=== PATIENT | male | born 1950 | race Caucasian/White ===

== ENCOUNTER 2017-11-24 11:13 | Outpatient (RCR) | payer MEDICARE | END 2017-11-24 12:25 | disposition home or self-care (01) | PROVIDERS: ATTEND Family Medicine | DX: R26.89 Other abnormalities of gait and mobility (principal) ==

== ENCOUNTER → 2018-06-08 | Outpatient (CLI) | payer MEDICARE, OTHER | LOC: RAD 09:56 | PROVIDERS: ATTEND Nurse Practitioner Community Health | DX: R41.0 Disorientation, unspecified (principal); Z53.8 Procedure and treatment not carried out for other reasons ==

== ENCOUNTER 2018-06-14 12:51 | Inpatient (IN) | payer MEDICARE ==
[~2018-06-14] VITALS: Ht 170.2 cm; Wt 181.4 kg
[2018-06-14 13:22] LABS: BASOPHILS % (AUTO) 0 % (0-10); EOSINOPHILS % (AUTO) 0 % (0-10); HEMATOCRIT 39 % (40-54); HEMOGLOBIN 13.9 G/DL (13.3-17.7); LYMPHOCYTES % (AUTO) 7 % (12-44); MEAN CORPUSCULAR HEMOGLOBIN 33 PG (25-34); MEAN CORPUSCULAR HGB CONC 36 G/DL (32-36); MEAN CORPUSCULAR VOLUME 92 FL (80-99); MEAN PLATELET VOLUME 9.7 FL (7.4-10.4); MONOCYTES # (AUTO) 1.3 X 10^3 (0.0-1.0); MONOCYTES % (AUTO) 10 % (0-12); NEUTROPHILS # (AUTO) 11.1 X 10^3 (1.8-7.8); NEUTROPHILS % (AUTO) 83 % (42-75); PLATELET COUNT 161 10^3/uL (130-400); WHITE BLOOD COUNT 13.4 10^3/uL (4.3-11.0)
[2018-06-14] MEDS ORDERED: NS IV 500 ML 500 ML IV ONE (13:25)
[2018-06-14] MEDS ORDERED: NS IV 500 ML 500 ML ONE (13:25)
--- NOTE | 2018-06-14 13:33 | ED General ---
General Chief Complaint: General Problems/Pain Stated Complaint: STROKE LIKE SYMPTOMS Nursing Triage Note: PT BROUGHT IN BY EMS FROM [facility] WITH COMPLAINT OF LEFT SIDED WEAKNESS. PER NH, SYMPTOMS STARTED LAST NIGHT. PT WAS LEANING TOWARDS LEFT SIDE IN WHEELCHAIR. PT STATES SYMTPOMS HAVE RESOLVED. NH ALSO STATED THAT PT WAS RUNNING A TEMPERATURE LAST NIGHT. Nursing Sepsis Screen: No Definite Risk Source of Information: Patient Exam Limitations: No Limitations History of Present Illness Date Seen by Provider: Jun 14, 2018 Time Seen by Provider: 13:12 Initial Comments Here with report of left-sided weakness but patient states that he is actually globally weak and worse in the legs and the arms. Apparently last night had an episode of incontinence. 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 Apparently he was running a temperature last night. Patient is not a great historian. He states he is normally able to walk some with assistance but is more weak on his legs now. Denies nausea or vomiting. Denies breathing problems or chest pain. Report from shelter was that he was leaning towards the left. This is apparently going on for 12-18 hours at least. Timing/Duration: 12-24 Hours Severity: Mild, Moderate Associated Systoms: No Chest Pain, No Cough; Fever/Chills, Loss of Appetite; No Nausea/Vomiting, No Shortness of Air; Weakness Allergies and Home Medications Allergies Coded Allergies: No Known Drug Allergies (Unverified , 06/14/18) Patient Home Medication List Home Medication List Reviewed: Yes Review of Systems Review of Systems Constitutional: see HPI; No chills; fever, weakness EENTM: no symptoms reported Respiratory: No cough, No short of breath Cardiovascular: No chest pain; edema Gastrointestinal: No abdominal pain, No nausea, No vomiting Genitourinary: incontinence; No pain Musculoskeletal: see HPI; No muscle pain; muscle weakness Skin: change in color; No lesions Psychiatric/Neurological: See HPI, Weakness Hematologic/Lymphatic: No Symptoms Reported All Other Systems Reviewed Negative Unless Noted: Yes Past Ilbtwzh-Voxoaf-Zblnya Hx Past Med/Social Hx: Reviewed Nursing Past Med/Soc Hx Patient Social History Alcohol Use: Denies Use Recreational Drug Use: No Smoking Status: Never a Smoker Recent Foreign Travel: No Contact w/Someone Who Travel: No Recent Infectious Disease Expo: No Recent Hopitalizations: No Immunizations Up To Date Tetanus Booster (TDap): Unknown Seasonal Allergies Seasonal Allergies: No Past Medical History Surgeries: Yes (NECK, EYE, ) Orthopedic Neurological: Yes (TBI) Genitourinary: No Endocrine: Yes Family Medical History Reviewed Nursing Family Hx No Pertinent Family Hx Physical Exam Vital Signs Vital Signs - First Documented 06/14/18 12:51 Temp 98.3 Pulse 103 Resp 20 B/P (MAP) 118/64 (82) Pulse Ox 96 O2 Delivery Room Air Capillary Refill : Less Than 3 Seconds Height, Weight, BMI Height: 5'7.00" Weight: 400lbs. oz. 181.175692wv; BMI Method:Estimated General Appearance: No Apparent Distress, WD/WN, Obese HEENT: Pharynx Normal, Other (left eye. Right eye reactive) Neck: Non Tender, Supple Respiratory: Lungs Clear, Normal Breath Sounds Cardiovascular: No Murmur, Tachycardia Gastrointestinal: Non Tender, Soft Back: Normal Inspection, No CVA Tenderness, No Vertebral Tenderness Extremity: Non Tender, Swelling (bilateral lower extremities with venous stasis color changes), Other (bilateral lower extremities) Neurologic/Psychiatric: Alert, Oriented x3 Skin: Warm/Dry, Other (venous stasis changes bilateral lower extremities) Focused Exam Lactate Level 06/14/18 14:29: Lactic Acid Level 2.45*H Lactic Acid Level Laboratory Tests Test 06/14/18 14:29 Lactic Acid Level 2.45 MMOL/L (0.50-2.00) *H Progress/Results/Core Measures Suspected Sepsis Recent Fever Within 48 Hours: No Infection Criteria Present: None New/Unexplained Altered Menta: No Sepsis Screen: No Definite Risk SIRS Temperature:98.3 Pulse: 103 Respiratory Rate: 20 Laboratory Tests 06/14/18 13:10: White Blood Count 13.4H Blood Pressure 118 /64 Mean: 82 06/14/18 14:29: Lactic Acid Level 2.45*H Laboratory Tests 06/14/18 13:10: Creatinine 1.12, INR Comment 1.0, Platelet Count 161, Total Bilirubin 0.5 Results/Orders Lab Results Laboratory Tests Test 06/14/18 13:10 06/14/18 13:34 06/14/18 14:29 Range/Units White Blood Count 13.4 H 4.3-11.0 10^3/uL Red Blood Count 4.21 L 4.35-5.85 10^6/uL Hemoglobin 13.9 13.3-17.7 G/DL Hematocrit 39 L 40-54 % Mean Corpuscular Volume 92 80-99 FL Mean Corpuscular Hemoglobin 33 25-34 PG Mean Corpuscular Hemoglobin Concent 36 32-36 G/DL Red Cell Distribution Width 12.0 10.0-14.5 % Platelet Count 161 130-400 10^3/uL Mean Platelet Volume 9.7 7.4-10.4 FL Neutrophils (%) (Auto) 83 H 42-75 % Lymphocytes (%) (Auto) 7 L 12-44 % Monocytes (%) (Auto) 10 0-12 % Eosinophils (%) (Auto) 0 0-10 % Basophils (%) (Auto) 0 0-10 % Neutrophils # (Auto) 11.1 H 1.8-7.8 X 10^3 Lymphocytes # (Auto) 1.0 1.0-4.0 X 10^3 Monocytes # (Auto) 1.3 H 0.0-1.0 X 10^3 Eosinophils # (Auto) 0.0 0.0-0.3 10^3/uL Basophils # (Auto) 0.0 0.0-0.1 10^3/uL Neutrophils % (Manual) 79 % Lymphocytes % (Manual) 6 % Monocytes % (Manual) 9 % Band Neutrophils 6 % Blood Morphology Comment NORMAL Prothrombin Time 13.6 12.2-14.7 SEC INR Comment 1.0 0.8-1.4 Activated Partial Thromboplast Time 31 24-35 SEC D-Dimer 0.93 H 0.00-0.49 UG/ML Sodium Level 135 135-145 MMOL/L Potassium Level 4.3 3.6-5.0 MMOL/L Chloride Level 99 98-107 MMOL/L Carbon Dioxide Level 26 21-32 MMOL/L Anion Gap 10 5-14 MMOL/L Blood Urea Nitrogen 19 H 7-18 MG/DL Creatinine 1.12 0.60-1.30 MG/DL Estimat Glomerular Filtration Rate > 60 BUN/Creatinine Ratio 17 Glucose Level 287 H 70-105 MG/DL Calcium Level 9.1 8.5-10.1 MG/DL Corrected Calcium 9.4 8.5-10.1 MG/DL Total Bilirubin 0.5 0.1-1.0 MG/DL Aspartate Amino Transf (AST/SGOT) 17 5-34 U/L Alanine Aminotransferase (ALT/SGPT) 15 0-55 U/L Alkaline Phosphatase 66 40-136 U/L Troponin I < 0.028 <0.028 NG/ML Total Protein 7.2 6.4-8.2 GM/DL Albumin 3.6 3.2-4.5 GM/DL Urine Color YELLOW Urine Clarity CLEAR Urine pH 5 5-9 Urine Specific [place] 1.020 1.016-1.022 Urine Protein NEGATIVE NEGATIVE Urine Glucose (UA) 1+ H NEGATIVE Urine Ketones 1+ H NEGATIVE Urine Nitrite POSITIVE H NEGATIVE Urine Bilirubin NEGATIVE NEGATIVE Urine Urobilinogen 1 NORMAL MG/DL Urine Leukocyte Esterase 2+ H NEGATIVE Urine RBC (Auto) 1+ H NEGATIVE Urine RBC 0-2 /HPF Urine WBC 10-25 H /HPF Urine Crystals NONE /LPF Urine Bacteria LARGE H /HPF Urine Casts NONE /LPF Urine Mucus NEGATIVE /LPF Urine Culture Indicated YES Glucometer 301 H 70-110 MG/DL Lactic Acid Level 2.45 *H 0.50-2.00 MMOL/L My Orders Orders - GAGE HAUSER MD Ns Iv 500 Ml (Sodium Chloride 0.9%) (06/14/18 13:25) Ns Iv 500 Ml (Sodium Chloride 0.9%) (06/14/18 13:25) Lactic Acid Analyzer (06/14/18 14:20) Blood Culture (06/14/18 14:20) Ceftriaxone For Iv Use (Rocephin For I (06/14/18 14:30) Lr 1000ml Iv (06/14/18 15:27) Medications Given in ED Current Medications Medications Dose Ordered Sig/Riley Route Start Time Stop Time Status Last Admin Dose Admin Ceftriaxone Sodium 1000 mg/ Sterile Water 10 ml @ 200 mls/hr ONCE ONCE IV 06/14/18 14:30 06/14/18 14:32 DC 06/14/18 14:51 200 MLS/HR Sodium Chloride 500 ml @ 0 mls/hr Q0M ONCE IV 06/14/18 13:25 06/14/18 13:27 DC 06/14/18 13:30 500 MLS/HR Vital Signs/I&O 06/14/18 12:51 Temp 98.3 Pulse 103 Resp 20 B/P (MAP) 118/64 (82) Pulse Ox 96 O2 Delivery Room Air Capillary Refill : Less Than 3 Seconds Blood Pressure Mean: 82 Progress Note : Progress Note Seen and evaluated. IV, labs, EKG and chest x-ray ordered. CT head ordered. Normal saline 500 mL bolus. We will check a UA as he is incontinent and has had fever. Dysphagia screen ordered. 1420: CT is negative for acute stroke. UA is positive for urinary tract infection. Given the patient's weakness, elevated white count and otherwise comorbidities, patient will need admission for IV antibiotics and hydration and continued monitoring. Blood cultures and lactic acid have been ordered. We will initiate treatment with Rocephin after. Findings more consistent with urinary tract infection and less consistent with stroke. Patient is well outside of TPA window so TPA is not indicated. He is also essentially without deficits except for global weakness. 1519: Patient to be admitted, inpatient status. I did discuss the case with Dr. Fox and she accepts patient for admission. We will not Silver catheter at this point at this point but we will monitor for urinary retention every 4-6 hours and the bladder scan if he has not urinated. Patient does have history of some urinary retention but is voiding currently. We will repeat fluids bolus with LR 1 L. Patient remains greater than 90 systolic or 65 mouth and does not require high- volume fluid resuscitation at this time. Patient is likely somewhat dehydrated though so additional fluid will benefit. Patient will be on sliding scale. agrees with the plan. ECG Initial ECG Impression Date: Jun 14, 2018 Initial ECG Impression Time: 13:15 Initial ECG Rate: 97 Initial ECG Rhythm: Normal Sinus Comment Sinus rhythm with left bundle branch block. Normal axis. No evidence of ST elevation SC. No previous available for comparison. Interpreted by me. Diagnostic Imaging Diagonstic Imaging: Xray Plain Films/CT/US/NM/MRI: chest [facility] [place], [place] NAME: SIOMARA HYDE [facility] REC#: [id number] PT STATUS: REG ER : 1950 PHYSICIAN: CHARISSA ROBLEDO APRN ADMIT DATE: 06/14/18/ER Draft Date of Exam:06/14/18 CHEST 1 VIEW, AP/PA ONLY INDICATION: Left-sided weakness. Time of exam 1:40 PM. No prior studies are available for comparison. The heart is enlarged. Lungs are clear. No infiltrate or failure is detected. No effusion or pneumothorax is seen. IMPRESSION: Cardiomegaly. No other significant abnormality is detected. Dictated on workstation # [id number] Dict: 06/14/18 1354 Trans: 06/14/18 1357 [facility] [id number] Interpreted by: ANUP JONES MD Electronically signed by: Duy Imaging: CT Plain Films/CT/US/NM/MRI: head Comments [facility] [place] [place] NAME: SIOMARA HYDE [facility] REC#: [id number] PT STATUS: REG ER : 1950 PHYSICIAN: CHARISSA ROBLEDO APRN ADMIT DATE: 06/14/18/ER Draft Date of Exam:06/14/18 CT HEAD WO-R/O STROKE PROCEDURE: CT head wo r/o stroke. TECHNIQUE: Multiple contiguous axial images were obtained through the brain without the use of intravenous contrast. Auto Exposure Controls were utilized during the CT exam to meet ALARA standards for radiation dose reduction. INDICATION: Weakness. No prior studies are available for comparison. Ventricles and sulci are somewhat prominent for the patient's age, perhaps on the basis of cerebral atrophy. No sulcal effacement or midline shift is identified. No acute intra-axial or extra-axial hemorrhage is detected. Cisterns are patent. Visualized paranasal sinuses are clear. IMPRESSION: Cerebral atrophy. No acute intracranial process is detected. Results were discussed with Dr. Hauser in the Emergency Department prior to this dictation. Dictated on workstation # [id number] Dict: 06/14/18 1415 Trans: 06/14/18 1419 LATESHA [id number] Interpreted by: ANUP JONES MD Electronically signed by: Departure Communication (Admissions) Time/Spoke to Admitting Phy: 15:19 Impression Primary Impression: Urinary tract infection Qualified Codes: N30.00 - Acute cystitis without hematuria Additional Impressions: Hyperglycemia Weakness Disposition: ADMITTED INPATIENT Condition: Stable Admissions Decision to Admit Reason: Admit from ER (General) Decision to Admit/Date: Jun 14, 2018 Time/Decision to Admit Time: 15:19 Departure-Patient Inst. Referrals: MARCELLA ADAMS MD (PCP) Primary Care Physician GAGE HAUSER MD Jun 14, 2018 13:33
[2018-06-14 13:40] LABS: BILIRUBIN,URINE NEGATIVE (NEGATIVE); CLARITY,URINE CLEAR; COLOR,URINE YELLOW; GLUCOSE, URINE (UA) 1+ (NEGATIVE); KETONES,URINE 1+ (NEGATIVE); LEUKOCYTE ESTERASE ,URINE 2+ (NEGATIVE); NITRITE,URINE POSITIVE (NEGATIVE); PH,URINE 5 (5-9); PROTEIN,URINE NEGATIVE (NEGATIVE); UROBILINOGEN,URINE 1 MG/DL (NORMAL)
[2018-06-14 13:41] LABS: ALANINE AMINOTRANSFERASE 15 U/L (0-55); ALBUMIN 3.6 GM/DL (3.2-4.5); ALKALINE PHOSPHATASE 66 U/L (40-136); BILIRUBIN,TOTAL 0.5 MG/DL (0.1-1.0); BUN/CREATININE RATIO 17; CALCIUM 9.1 MG/DL (8.5-10.1); CARBON DIOXIDE 26 MMOL/L (21-32); CHLORIDE 99 MMOL/L (98-107); CREATININE SERUM 1.12 MG/DL (0.60-1.30); GFR ESTIMATED > 60; GLUCOSE 287 MG/DL (70-105); POTASSIUM 4.3 MMOL/L (3.6-5.0); SODIUM 135 MMOL/L (135-145); TOTAL PROTEIN 7.2 GM/DL (6.4-8.2)
[2018-06-14] MEDS ORDERED: DIVA500T15 (13:43)
[2018-06-14] MEDS ORDERED: SERT50TA9 PO (13:43)
[2018-06-14] MEDS ORDERED: LISI1TAB8 PO (13:43)
[2018-06-14] MEDS ORDERED: TIMO5DRO5 OU (13:43)
[2018-06-14 13:45] LABS: FIBRIN DEGRADATION PRODUCTS 0.93 UG/ML (0.00-0.49); PROTHROMBIN TIME PATIENT 13.6 SEC (12.2-14.7)
[2018-06-14 13:50] LABS: BACTERIA,URINE LARGE /HPF; RBC,URINE 0-2 /HPF
--- NOTE | 2018-06-14 13:57 | Diagnostic Imaging Report ---
INDICATION: Left-sided weakness. Time of exam 1:40 PM. No prior studies are available for comparison. The heart is enlarged. Lungs are clear. No infiltrate or failure is detected. No effusion or pneumothorax is seen. IMPRESSION: Cardiomegaly. No other significant abnormality is detected. Dictated by: Dictated on workstation # [id number]
[2018-06-14 14:00] LABS: BAND NEUTROPHILS 6 %; LYMPHOCYTES % (MANUAL) 6 %; MONOCYTES % (MANUAL) 9 %; NEUTROPHILS % (MANUAL) 79 %; RBC MORPH NORMAL
--- NOTE | 2018-06-14 14:19 | Diagnostic Imaging Report ---
PROCEDURE: CT head wo r/o stroke. TECHNIQUE: Multiple contiguous axial images were obtained through the brain without the use of intravenous contrast. Auto Exposure Controls were utilized during the CT exam to meet ALARA standards for radiation dose reduction. INDICATION: Weakness. No prior studies are available for comparison. Ventricles and sulci are somewhat prominent for the patient's age, perhaps on the basis of cerebral atrophy. No sulcal effacement or midline shift is identified. No acute intra-axial or extra-axial hemorrhage is detected. Cisterns are patent. Visualized paranasal sinuses are clear. IMPRESSION: Cerebral atrophy. No acute intracranial process is detected. Results were discussed with Dr. Camarillo in the Emergency Department prior to this dictation. Dictated by: Dictated on workstation # [id number]
[2018-06-14] MEDS ORDERED: cefTRIAXone FOR IV USE 1,000 MG in WATER (STERILE) FOR INJECTION 10 ML IV ONE (14:30)
[2018-06-14] MEDS ORDERED: LACTATED RINGERS 1,000 ML IV ONE ×2 (15:26→15:27)
--- NOTE | 2018-06-14 16:00 | NUR ---
MARY ELLENSIOMARA Meehan admitted to room 410-1, with an admitting diagnosis of UTI, on 06/14/18 from AM via cart, accompanied by staff.SIOMARA HYDE introduced to surroundings, call light, bed controls, phone, TV, temperature control, lights, meal times, smoking policy, visitor policy, side rail policy, bathrooms and showers. Patient Rights given to patient in the handbook. SIOMARA HYDE verbalizes understanding that [facility] is not responsible for the loss or damage to any personal effects or valuables that are kept in the patients posession during their hospitalization. The following Patient Care Plans were discussed with the pt and : Discharge Planning. SIOMARA HYDE verbalizes understanding of Interdisciplinary Patient Education. Patient and/or family were informed about the Rapid Response Team and its purpose.
[2018-06-14] MEDS ORDERED: CATHETER FLUSH 10 ML SYR IV PRN (16:30)
[2018-06-14] MEDS: NS IV 1000 ML 1,000 ML IV SCH ×2 (16:33→18:54)
[2018-06-14 16:57] VITALS: BP 142/70
[2018-06-14] MEDS ORDERED: DIVA-21 PO (18:02)
[2018-06-14] MEDS: TAMSULOSIN 0.4 MG (FLOMAX) CAP PO SCH (18:46)
[2018-06-14] MEDS: IBUPROFEN TABLET 200 MG TAB PO PRN (18:47)
[2018-06-14 20:00] VITALS: BP 119/56
--- NOTE | 2018-06-14 20:00 | NUR ---
CONTACTED DR KAN REGARDING INCREASE IN TEMPERATURE. PATIENT HAS BEEN PACKED WITH ICE BAGS TO REDUCE TEMPERATURE. NO FURTHER ORDERS AT THIS TIME.
[2018-06-14] MEDS ORDERED: DIVALPROEX SODIUM PO SCH (21:00)
[2018-06-14] MEDS: DIVALPROEX EXT RELEASE 500 MG (DEPAKOTE ER) TAB PO SCH (21:41)
[2018-06-14] MEDS: inSUlin ASPART (NovoLOG) 1 UNIT/0.01 ML (CHARGE PER UNIT) SC SCH (21:42)
[2018-06-15] VITALS: BP 115/58
[2018-06-15 04:00] VITALS: BP 105/52
[2018-06-15 06:16] LABS: BASOPHILS % (AUTO) 0 % (0-10); EOSINOPHILS % (AUTO) 0 % (0-10); HEMATOCRIT 37 % (40-54); HEMOGLOBIN 12.7 G/DL (13.3-17.7); LYMPHOCYTES # (AUTO) 1.7 X 10^3 (1.0-4.0); LYMPHOCYTES % (AUTO) 13 % (12-44); MEAN CORPUSCULAR HEMOGLOBIN 32 PG (25-34); MEAN CORPUSCULAR HGB CONC 34 G/DL (32-36); MEAN CORPUSCULAR VOLUME 94 FL (80-99); MEAN PLATELET VOLUME 9.6 FL (7.4-10.4); MONOCYTES # (AUTO) 1.6 X 10^3 (0.0-1.0); MONOCYTES % (AUTO) 12 % (0-12); NEUTROPHILS % (AUTO) 75 % (42-75); PLATELET COUNT 129 10^3/uL (130-400); RED CELL DISTRIBUTION WIDTH 11.9 % (10.0-14.5); WHITE BLOOD COUNT 13.2 10^3/uL (4.3-11.0)
[2018-06-15 06:44] LABS: ALANINE AMINOTRANSFERASE 10 U/L (0-55); ALBUMIN 3.2 GM/DL (3.2-4.5); ALKALINE PHOSPHATASE 52 U/L (40-136); BILIRUBIN,TOTAL 0.8 MG/DL (0.1-1.0); BUN/CREATININE RATIO 26; CARBON DIOXIDE 26 MMOL/L (21-32); CHLORIDE 102 MMOL/L (98-107); CHOLESTEROL 149 MG/DL (< 200); CREATININE SERUM 0.98 MG/DL (0.60-1.30); GFR ESTIMATED > 60; GLUCOSE 149 MG/DL (70-105); HDL CHOLESTEROL 32 MG/DL (40-60); SODIUM 139 MMOL/L (135-145); TOTAL PROTEIN 6.1 GM/DL (6.4-8.2); TRIGLYCERIDES 101 MG/DL (<150); VLDL CHOLESTEROL 20 MG/DL (5-40)
[2018-06-15] MEDS: inSUlin ASPART (NovoLOG) 1 UNIT/0.01 ML (CHARGE PER UNIT) SC SCH ×4 (06:45→22:02)
[2018-06-15 08:56] VITALS: BP 130/66
[2018-06-15] MEDS ORDERED: MULT-1029 PO (08:56)
[2018-06-15] MEDS ORDERED: TAMS0.4C98 PO (08:56)
[2018-06-15] MEDS ORDERED: CETI10TA20 PO (08:56)
[2018-06-15] MEDS ORDERED: CINN500C2 PO (08:56)
[2018-06-15] MEDS ORDERED: TURM500C4 PO (09:12)
[2018-06-15] MEDS ORDERED: MAG-10 PO (09:12)
[2018-06-15] MEDS ORDERED: MAGN400O7 PO (09:12)
[2018-06-15] MEDS ORDERED: ASPI-983 PO (09:12)
[2018-06-15] MEDS ORDERED: ACET325T38 PO (09:12)
[2018-06-15] MEDS ORDERED: INSU100V SQ ×2 (09:12)
[2018-06-15] MEDS ORDERED: HYDR28.3 TP (09:12)
[2018-06-15] MEDS ORDERED: TEST200V27 IM (09:12)
[2018-06-15] MEDS ORDERED: IBUP-30 PO (09:12)
--- NOTE | 2018-06-15 09:19 | NUR ---
UPDATED MED REC WITH PHYSICIAN VISIT FORM FROM [facility]. I CALLED THEM TO CLARIFY THE SLIDING SCALE ON THE INSULINS AND THE LAST DOSE OF THE DEPO TESTOSTERONE. SHE STATES THE TESTOSTERONE WAS DISCONTINUED YESTERDAY.
[2018-06-15] MEDS: SERTRALINE 50 MG (ZOLOFT) TABLET PO SCH (10:40)
[2018-06-15] MEDS: IBUPROFEN TABLET 200 MG TAB PO PRN ×2 (10:40→22:01)
[2018-06-15] MEDS: lisINopril 20 MG (PRINIVIL) TABLET PO SCH (10:40)
[2018-06-15] MEDS: HYDROCHLOROTHIAZIDE 12.5 MG (HCTZ) CAP PO SCH (10:41)
[2018-06-15 12:08] VITALS: BP 123/63
--- NOTE | 2018-06-15 13:45 | History & Physicial (CHS) ---
HPI History of Present Illness: 67 yo M with h/o TBI 20 yrs ago that presented with weakness, fever and altered mental status. states that the last couple of months he has been having increasing weakness on the right side. Patient underwent scope in Dr Boss's office 3 days prior to admission and now has UTI. Patient has been having overflow incontinence and troubles voiding. Flomax was stopped about 1 month ago because of change in mood. states that nothing changed went medication was stopped in regards with mood but he started having increasing problems urinating. Source: patient, RN/MD, old records, spouse () Exam Limitations: no limitations Date seen by provider: Jun 15, 2018 Time Seen by Provider: 10:00 Attending Physician Simin Fox MD PCP Teresa Houston MD Consult Date of Admission Jun 14, 2018 at 15:29 Home Medications Home Medications Reviewed patient Home Medication Reconciliation performed by pharmacy medication reconciliations marine technician and/or nursing. Patients Allergies have been reviewed. Allergies Coded Allergies: No Known Drug Allergies (Unverified , 06/14/18) [id number]-Alstso Hx Patient Social History Alcohol Use: Denies Use Recreational Drug Use: No Smoking Status: Never a Smoker Recent Foreign Travel: No Contact w/other who traveled: No Recent Hopitalizations: No Recent Infectious Disease Expo: No Physical Abuse Screen: No Sexual Abuse: No Immunizations Up To Date Tetanus Booster (TDap): Unknown Date of Pneumonia Vaccine: Apr 12, 2018 Past Medical History TBI 20 years ago IDDM HTN Urinary Retention Family Medical History Significant Family History: No Pertinent Family Hx Review of Systems (CHC) Constitutional: chills, fever, malaise EENTM: no symptoms reported; No mouth pain, No nose pain Respiratory: no symptoms reported; No cough, No dyspnea on exertion, No orthopnea, No short of breath Cardiovascular: No chest pain; edema; No palpitations Gastrointestinal: no symptoms reported; No abdominal pain, No constipation, No diarrhea, No loss of appetite, No nausea, No vomiting Genitourinary: No dysuria; frequency, hesitancy, incontinence Musculoskeletal: muscle weakness Skin: No lesions, No rash Psychiatric/Neurological: Numbness, Weakness Reviewed Test Results Reviewed Test Results Lab Laboratory Tests Test 06/15/18 05:33 06/15/18 05:53 06/15/18 10:33 06/15/18 15:07 Range/Units Sodium Level 139 135-145 MMOL/L Potassium Level 4.0 3.6-5.0 MMOL/L Chloride Level 102 98-107 MMOL/L Carbon Dioxide Level 26 21-32 MMOL/L Anion Gap 11 5-14 MMOL/L Blood Urea Nitrogen 25 H 7-18 MG/DL Creatinine 0.98 0.60-1.30 MG/DL Estimat Glomerular Filtration Rate > 60 BUN/Creatinine Ratio 26 Glucose Level 149 H 70-105 MG/DL Calcium Level 9.0 8.5-10.1 MG/DL Corrected Calcium 9.6 8.5-10.1 MG/DL Total Bilirubin 0.8 0.1-1.0 MG/DL Aspartate Amino Transf (AST/SGOT) 14 5-34 U/L Alanine Aminotransferase (ALT/SGPT) 10 0-55 U/L Alkaline Phosphatase 52 40-136 U/L Total Protein 6.1 L 6.4-8.2 GM/DL Albumin 3.2 3.2-4.5 GM/DL Triglycerides Level 101 <150 MG/DL Cholesterol Level 149 < 200 MG/DL LDL Cholesterol Direct 97 1-129 MG/DL VLDL Cholesterol 20 5-40 MG/DL HDL Cholesterol 32 L 40-60 MG/DL White Blood Count 13.2 H 4.3-11.0 10^3/uL Red Blood Count 3.94 L 4.35-5.85 10^6/uL Hemoglobin 12.7 L 13.3-17.7 G/DL Hematocrit 37 L 40-54 % Mean Corpuscular Volume 94 80-99 FL Mean Corpuscular Hemoglobin 32 25-34 PG Mean Corpuscular Hemoglobin Concent 34 32-36 G/DL Red Cell Distribution Width 11.9 10.0-14.5 % Platelet Count 129 L 130-400 10^3/uL Mean Platelet Volume 9.6 7.4-10.4 FL Neutrophils (%) (Auto) 75 42-75 % Lymphocytes (%) (Auto) 13 12-44 % Monocytes (%) (Auto) 12 0-12 % Eosinophils (%) (Auto) 0 0-10 % Basophils (%) (Auto) 0 0-10 % Neutrophils # (Auto) 10.0 H 1.8-7.8 X 10^3 Lymphocytes # (Auto) 1.7 1.0-4.0 X 10^3 Monocytes # (Auto) 1.6 H 0.0-1.0 X 10^3 Eosinophils # (Auto) 0.0 0.0-0.3 10^3/uL Basophils # (Auto) 0.0 0.0-0.1 10^3/uL Glucometer 234 H 224 H 70-110 MG/DL Test 06/15/18 19:59 Range/Units Glucometer 192 H 70-110 MG/DL Physical Exam-(CHC) Physical Exam Vital Signs VS - Last 72 Hours, by Label 06/14/18 06/14/18 06/14/18 06/14/18 12:51 16:12 16:54 16:57 Temp 98.3 99.2 Pulse 103 108 100 Resp 20 20 20 B/P (MAP) 118/64 (82) 99/71 (80) 142/70 Pulse Ox 96 98 95 95 O2 Delivery Room Air Room Air Room Air Room Air 06/14/18 06/14/18 06/14/18 06/14/18 18:29 18:47 19:09 19:30 Temp 101.2 103.5 Pulse 93 103 06/14/18 06/14/18 06/15/18 06/15/18 20:00 20:00 00:00 00:59 Temp 103.5 99.0 Pulse 92 80 77 Resp 20 24 B/P (MAP) 119/56 (77) 115/58 (77) Pulse Ox 93 93 93 O2 Delivery NIV CPAP NIV CPAP NIV CPAP 06/15/18 06/15/18 06/15/18 06/15/18 04:00 06:59 08:25 08:56 Temp 97.4 97.5 Pulse 79 72 78 Resp 23 18 B/P (MAP) 105/52 (69) 130/66 (87) Pulse Ox 91 93 O2 Delivery NIV CPAP Room Air Room Air 06/15/18 06/15/18 06/15/18 06/15/18 12:08 13:00 16:25 19:00 Temp 98.1 98.4 Pulse 81 89 72 80 Resp 18 20 B/P (MAP) 123/63 (83) 126/71 (89) Pulse Ox 96 95 O2 Delivery Room Air Room Air 06/15/18 19:11 Temp 98.2 Pulse 80 Resp 20 B/P (MAP) 135/75 (95) Pulse Ox 94 O2 Delivery Room Air Capillary Refill : Less Than 3 Seconds General Appearance: WD/WN, no apparent distress, obese HEENT: PERRL/EOMI Neck: non-tender, full range of motion, supple Respiratory: chest non-tender, lungs clear, normal breath sounds, no respiratory distress, no accessory muscle use Cardiovascular: normal peripheral pulses, regular rate, rhythm, no edema, no murmur Gastrointestinal: normal bowel sounds, non tender, soft Back: no CVA tenderness, no vertebral tenderness Extremities: normal range of motion, no calf tenderness, pedal edema (2+ pitting bilaterally, hemociderin deposition) Neurologic/Psychiatric: data center technician II-XII nml as tested, no motor/sensory deficits, alert, normal mood/affect, oriented x 3 Skin: normal color, warm/dry Lymphatic: no adenopathy Assessment/Plan Assessment/Plan Admission Status: Inpatient Order (span 2 midnights) Reason for Inpatient Admission: Requiring freq vitals and IV antibiotics with fevers (1) Urinary tract infection Status: Acute Assessment & Plan: - Fever curve has improved, continue Rocephin, Culture pending Qualifiers: Qualified Codes: N30.00 - Acute cystitis without hematuria (2) Urinary retention Status: Chronic Assessment & Plan: - Will consult Dr Boss given recent instrumentation (3) H/O traumatic brain injury Status: Chronic (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
--- NOTE | 2018-06-15 14:09 | Physical Therapy Evaluation ---
PT Evaluation-General Medical Diagnosis Admission Date Jun 14, 2018 at 15:29 Medical Diagnosis: UTI Onset Date: Jun 15, 2018 Therapy Diagnosis Therapy Diagnosis: weakness Height/Weight Height (Feet): 5 Height (Inches): 7.00 Weight (Pounds): 400 Weight (Ounces): 0.0 Precautions Precautions/Isolations: Seizure, Fall Prevention, Standard Precautions Weight Bear Status Right Lower Extremity: Right Weight Bearing/Tolerated Left Lower Extremity: Left Weight Bearing/Tolerated Referral Physician: Dominique Reason for Referral: Evaluation/Treatment Medical History Additional Medical History TBI 20 years ago Current History Pt presented to ER with complaints of left sided weakness that have since resolved. Family () reports he has had a decline in mobility since well before with decreased ability to walk. Most recently, he has been a [facility] and receiving skilled PT. Reviewed History: Yes Social History Home: Multilevel Current Living Status: Spouse Entry Into Home: Stairs With Railing PT Steps Inside Home: 16 Prior/Core FIM Prior Level of Function Therapy Code Descriptions/Definitions Functional [place] Measure: 0=Not Assessed/NA 4=Minimal Assistance 1=Total Assistance 5=Supervision or Setup 2=Maximal Assistance 6=Modified [place] 3=Moderate Assistance 7=Complete [place] Therapy Quality Codes: 6 Independent with activity with or without an assistive device 5 Patient requires set up or clean up by helper. Patient completes activity by themselves 4 Supervision or touching assist (CGA). [place] provide cues , steadying assist 3 The helper provides less than half the effort to complete the activity 2 The helper provides more than half the effort to complete the activity 1 Dependent. The helper does all the effort to complete an activity 7 Patient refused to complete or attempt activity 9 The patient did not perform the activity before the current illness or injury 88 Not attempted due to Medical conditions or safety concerns Functional Abilities and Goals: Independent: Patient completed the activities by him/herself, with or without an assistive device, with no assistance from a helper. Needed Some Help: Patient needed partial assistance from another person to complete activities. Dependent: A helper completed the activities for the patient. Unknown: Not Applicable: Greater than 6 months ago, pt was walking with a FWW and able to mobilize on his own.. PT Evaluation-Current Subjective Agrees to PT. Reports he will do the best he can. Objective Patient Orientation: Person, Place, Time, Situation Problem Solving: Fair ROM/Strength ROM Lower Extremities WFL Strength Lower Extremities WFL Integumentary/Posture Integumentary Refer to nursing notes. Bowel Incontinence: No Bladder Incontinence: Silver Cath Posture large abdomen with rounded shouders; symmetrical Neuromuscular (Tone, Coordination, Reflexes) Increased tone noted right LE with intentional movement and decreased initiation of tasks R LE Sensory Vision: Functional Hearing: Functional Hand Dominance: Right Sensation Right Lower Extremit: Intact Sensation Left Lower Extremity: Intact Transfers Therapy Code Descriptions/Definitions Functional [place] Measure: 0=Not Assessed/NA 4=Minimal Assistance 1=Total Assistance 5=Supervision or Setup 2=Maximal Assistance 6=Modified [place] 3=Moderate Assistance 7=Complete [place] Transfers (B, C, W/C) (FIM): 1 Scootin Rollin Supine to/from Sit: 2 Sit to/from Stand: 3 Sit to stand x 4 reps with mod assist to come to a stand and mod assist for balance with FWW; retropulsive. Pt able to take small steps sideways to move to the top of the bed with several attempts to complete. Difficulty lifting right LE and initiating movement. Processing the task seems difficult and getting his limbs to carry out what his brain is saying. Balance Sitting Static: Good Sitting Dynamic: Good Standing Static: Fair Standing Dynamic: Fair Treatment Multiple sit to stand attempts with sidesteping to move towards the head of the bed. Assessment/Needs Presents with longstanding TBI with likely neurological involvement at this time related to it. In addition, he has an UTI that is likely impairing functional mobiltiy. Pt needs max to dep assist with all transfer and bed mobility and is limited with taking steps. He will benefit from skilled PT while hospitalized to work on functional mobility and progress his abilityt o mobilize himself. Likely will take buttermaker continuous churn therapy to return to his PLOF. Rehab Potential: Guarded PT Gasket Notcher Goals [facility] Goals PT [facility] Goals Time Frame: Jun 22, 2018 Transfers (B,C,W/C) (FIM): 4 Gait (FIM): 2 Gait distance (FIM): 1=264-13 ft Gait Assistive Device: FWW PT Plan Problem List Problem List: Activity Tolerance, Functional Strength, Safety, Balance, Gait, Transfer, Bed Mobility Treatment/Plan Treatment Plan: Continue Plan of Care Treatment Plan: Bed Mobility, Education, Functional Activity Jigar, Functional Strength, Gait, Safety, Therapeutic Exercise, Transfers Treatment Duration: Jun 22, 2018 Frequency: 6 times per week Estimated Hrs Per Day: .5 hour per day Patient and/or Family Agrees t: Yes Safety Risks/Education Patient Education: Transfer Techniques, Safety Issues Teaching Recipient: Patient Teaching Methods: Discussion Response to Teaching: Reinforcement Needed Discharge Recommendations Therapy D/C Recommendations: [facility] (TCU/NH) (PT) Time/GCodes Time In: 1250 Time Out: 1330 Total Billed Treatment Time: 40 Total Billed Treatment visit EVM 15 FA 25 DAVID NELSON PT Jun 15, 2018 14:09
[2018-06-15] MEDS: NS IV 1000 ML 1,000 ML IV SCH (14:59)
[2018-06-15] MEDS: cefTRIAXone 1,000 MG/SWFI 10 ML IV PUSH IV SCH ×2 (15:00)
--- NOTE | 2018-06-15 15:35 | Diagnostic Imaging Report ---
PROCEDURE: US Venous Lower Ext Simon. TECHNIQUE: Multiple real-time grayscale images were obtained over the lower extremities in various projections, bilaterally. Additional duplex Doppler and color Doppler images were also obtained. INDICATION: Bilateral lower extremity swelling. FINDINGS: There is no evidence of a right or left lower extremity DVT. Both lower extremity deep venous systems demonstrate normal compressibility with normal response to augmentation and Valsalva. No fluid collection or mass is seen. IMPRESSION: No evidence of right or left lower extremity DVT. Dictated by: Dictated on workstation # [id number]
[2018-06-15 16:25] VITALS: BP 126/71
[2018-06-15] MEDS: TAMSULOSIN 0.4 MG (FLOMAX) CAP PO SCH (17:44)
[2018-06-15 19:11] VITALS: BP 135/75
--- NOTE | 2018-06-15 20:19 | CONSULTATION REPORT ---
DATE OF SERVICE: 06/15/2018 ER CONSULTATION REPORT ATTENDING PHYSICIAN: Dr. Fox. SUMMARY: A 67-year-old white man with 3 days prior to admission underwent a bladder ultrasound and a cystoscopy in the office for BPH and prostatism. He was on Flomax. He is being admitted for neurological changes and UTI. He is on Rocephin and he is improving. He looks good. IMPRESSION: Urinary tract infection. RECOMMENDATION: Continue present management and keep his appointment and plan at the office. Job ID: [id number] DocumentID: [id number] Dictated Date: 06/15/2018 17:32:25 Medical And Scientific Illustrator Date: 06/15/2018 20:18:53 Dictated By: FLORI DONOHUE MD
[2018-06-15] MEDS ORDERED: ENOXAPARIN 40 MG/0.4 ML (LOVENOX) SYR SQ SCH (21:15)
[2018-06-15] MEDS: DIVALPROEX EXT RELEASE 500 MG (DEPAKOTE ER) TAB PO SCH (22:01)
[2018-06-16] VITALS (7 sets, daily range): BP systolic 106–140; BP diastolic 50–75
[2018-06-16] MEDS: inSUlin ASPART (NovoLOG) 1 UNIT/0.01 ML (CHARGE PER UNIT) SC SCH ×4 (06:00→21:31)
[2018-06-16 06:11] LABS: BASOPHILS % (AUTO) 0 % (0-10); EOSINOPHILS # (AUTO) 0.1 10^3/uL (0.0-0.3); EOSINOPHILS % (AUTO) 1 % (0-10); HEMATOCRIT 36 % (40-54); HEMOGLOBIN 12.4 G/DL (13.3-17.7); LYMPHOCYTES # (AUTO) 1.6 X 10^3 (1.0-4.0); LYMPHOCYTES % (AUTO) 18 % (12-44); MEAN CORPUSCULAR HEMOGLOBIN 32 PG (25-34); MEAN CORPUSCULAR HGB CONC 35 G/DL (32-36); MEAN CORPUSCULAR VOLUME 92 FL (80-99); MEAN PLATELET VOLUME 9.7 FL (7.4-10.4); MONOCYTES # (AUTO) 0.9 X 10^3 (0.0-1.0); MONOCYTES % (AUTO) 10 % (0-12); NEUTROPHILS # (AUTO) 6.3 X 10^3 (1.8-7.8); NEUTROPHILS % (AUTO) 72 % (42-75); PLATELET COUNT 119 10^3/uL (130-400); RED CELL DISTRIBUTION WIDTH 11.6 % (10.0-14.5); WHITE BLOOD COUNT 8.8 10^3/uL (4.3-11.0)
[2018-06-16 06:35] LABS: ALANINE AMINOTRANSFERASE 13 U/L (0-55); ALKALINE PHOSPHATASE 56 U/L (40-136); BILIRUBIN,TOTAL 0.5 MG/DL (0.1-1.0); BUN/CREATININE RATIO 23; CALCIUM 8.9 MG/DL (8.5-10.1); CARBON DIOXIDE 24 MMOL/L (21-32); CHLORIDE 100 MMOL/L (98-107); CREATININE SERUM 0.82 MG/DL (0.60-1.30); GFR ESTIMATED > 60; GLUCOSE 139 MG/DL (70-105); POTASSIUM 3.7 MMOL/L (3.6-5.0); SODIUM 135 MMOL/L (135-145); TOTAL PROTEIN 5.9 GM/DL (6.4-8.2)
--- NOTE | 2018-06-16 08:38 | NUR ---
CHANGED LOVENOX TO 60MG SQ BID PER BMI DOSING PROTOCOL.
[2018-06-16] MEDS ORDERED: NON-FORMULARY MEDICATION 1 EA EA (Cetirizine HCl (Zyrtec) 10 MG) PO SCH (09:00)
[2018-06-16] MEDS: LORATADINE (CLARITIN) 10 MG TAB PO SCH (09:54)
[2018-06-16] MEDS: lisINopril 20 MG (PRINIVIL) TABLET PO SCH (09:54)
[2018-06-16] MEDS: HYDROCHLOROTHIAZIDE 12.5 MG (HCTZ) CAP PO SCH (09:54)
[2018-06-16] MEDS: ASPIRIN E.C. 81 MG (ECOTRIN) TAB PO SCH (09:54)
[2018-06-16] MEDS: SERTRALINE 50 MG (ZOLOFT) TABLET PO SCH (09:54)
[2018-06-16] MEDS: ENOXAPARIN 60 MG/0.6 ML (LOVENOX) SYR SC SCH ×2 (09:55→21:32)
--- NOTE | 2018-06-16 09:55 | Progress Note-Urology ---
Progress Note-Urology Progress Notes/Assess & Plan Progress/Assessment & Plan FEELING AND DOING WELL. RECOMMEND 1. DC NEW 2. OK TO DISCHARGE [place] 3. KEEP APPOINTMENT IN OFFICE 4. CALL OR ED PRN Final Diagnosis UTI FLORI DONOHUE MD Jun 16, 2018 09:55
[2018-06-16] MEDS: NS IV 1000 ML 1,000 ML IV SCH ×2 (10:50→10:51)
--- NOTE | 2018-06-16 11:14 | Physical Therapy Daily Note ---
PT Daily Note-Current Subjective Patient in bed pre tx, agrees to PT, has no complaints of pain. Patient perseverates on different things. Appearance Patient in bed post tx, has nurse call, phone, tray, all needs met. Mental Status Patient Orientation: Person, Place, Situation Transfers Therapy Code Descriptions/Definitions Functional [place] Measure: 0=Not Assessed/NA 4=Minimal Assistance 1=Total Assistance 5=Supervision or Setup 2=Maximal Assistance 6=Modified [place] 3=Moderate Assistance 7=Complete [place] Therapy Quality Codes: 6 Independent with activity with or without an assistive device 5 Patient requires set up or clean up by helper. Patient completes activity by themselves 4 Supervision or touching assist (CGA). [place] provide cues , steadying assist 3 The helper provides less than half the effort to complete the activity 2 The helper provides more than half the effort to complete the activity 1 Dependent. The helper does all the effort to complete an activity 7 Patient refused to complete or attempt activity 9 The patient did not perform the activity before the current illness or injury 88 Not attempted due to Medical conditions or safety concerns Transfers (B, C, W/C) (FIM): 3 Scootin Rollin Supine to/from Sit: 3 Sit to/from Stand: 3 Patient tends to be retropulsive when sitting and standing. He stands quickly and impulsively and needs assist with balance when doing so. Weight Bearing Right Lower Extremity: Right Weight Bearing/Tolerated Left Lower Extremity: Left Weight Bearing/Tolerated Gait Training Gait (FIM): 1 Distance: 8', 2' Gait Level of Assist: 3 Gait Persons Needed: 1 Gait Assistive Device: FWW Patient ambulated 4' forward with min assist and 4' backward with mod assist ( very retropulsive and nervous), he then ambulated a couple of feet toward the head of the bed. Exercises Seated Therapy Exercises: Ankle pumps, Long arc quads Seated Reps: 15 Treatments bed mobility and transfers, ambulation, LE exercises Assessment Current Status: Fair Progress patient was able to ambulate but very unsteady and retropulsive PT [facility] Goals [facility] Goals PT Retail Service Technician Goals Time Frame: Jun 22, 2018 Transfers (B,C,W/C) (FIM): 4 Gait (FIM): 2 Gait distance (FIM): 5=714-67 ft Gait Assistive Device: FWW PT Plan Problem List Problem List: Activity Tolerance, Functional Strength, Safety, Balance, Gait, Transfer, Bed Mobility, ROM Treatment/Plan Treatment Plan: Continue Plan of Care Treatment Plan: Bed Mobility, Education, Functional Activity Jigar, Functional Strength, Gait, Safety, Therapeutic Exercise, Transfers Treatment Duration: Jun 22, 2018 Frequency: 6 times per week Estimated Hrs Per Day: .5 hour per day Patient and/or Family Agrees t: Yes Safety Risks/Education Patient Education: Gait Training, Transfer Techniques, Correct Positioning, Safety Issues Teaching Recipient: Patient Teaching Methods: Demonstration, Discussion Response to Teaching: Reinforcement Needed Time/GCodes Time In: 1050 Time Out: 1104 Total Billed Treatment Time: 14 Total Billed Treatment 1 visit FA Chaka' ARABELLA STARKS PT Jun 16, 2018 11:14
--- NOTE | 2018-06-16 11:36 | Progress Note (SOAP) ---
Subjective Subjective/Events-last exam Patient doing well this AM. No fever for over 24hrs. Tolerating PO diet. Review of Systems Date Seen by Provider: Jun 16, 2018 Time Seen by Provider: 10:25 Pulmonary: Dyspnea Cardiovascular: No: Chest Pain, Palpitations Gastrointestinal: No: Nausea, Vomiting, Abdominal Pain, Diarrhea, Constipation Genitourinary: Other (Wood in place, will remove today) Neurological: No: Confusion Focused Exam Lactate Level 06/14/18 14:29: Lactic Acid Level 2.45*H 06/14/18 16:25: Lactic Acid Level 1.72 Objective Exam Last Set of Vital Signs Vital Signs Date Time Temp Pulse Resp B/P (MAP) Pulse Ox O2 Delivery O2 Flow Rate FiO2 06/16/18 09:35 75 20 140/61 (87) 95 Room Air 06/16/18 08:00 96.5 Capillary Refill : Less Than 3 Seconds I&O Intake and Output 06/16/18 00:00 Intake Total 3612 ml Output Total 2150 ml Balance 1462 ml Intake Oral 3602 ml IV Total 10 ml Output Urine Total 2150 ml # Bowel Movements 1 General: Alert, Oriented X3, Cooperative, No Acute Distress Lungs: Other (diminshed breath sounds, NAD) Heart: Regular Rate, No Murmurs Abdomen: Normal Bowel Sounds, Soft, No Tenderness, No Masses Extremities: Other (2+ pitting edema bilaterally) Skin: No Rashes, No Breakdown Results/Procedures Lab Laboratory Tests 06/15/18 15:07: Glucometer 224H 06/15/18 19:59: Glucometer 192H 06/16/18 05:45: White Blood Count 8.8, Red Blood Count 3.88L, Hemoglobin 12.4L, Hematocrit 36L, Mean Corpuscular Volume 92, Mean Corpuscular Hemoglobin 32, Mean Corpuscular Hemoglobin Concent 35, Red Cell Distribution Width 11.6, Platelet Count 119L, Mean Platelet Volume 9.7, Neutrophils (%) (Auto) 72, Lymphocytes (%) (Auto) 18, Monocytes (%) (Auto) 10, Eosinophils (%) (Auto) 1, Basophils (%) (Auto) 0, Neutrophils # (Auto) 6.3, Lymphocytes # (Auto) 1.6, Monocytes # (Auto) 0.9, Eosinophils # (Auto) 0.1, Basophils # (Auto) 0.0, Sodium Level 135, Potassium Level 3.7, Chloride Level 100, Carbon Dioxide Level 24, Anion Gap 11, Blood Urea Nitrogen 19H, Creatinine 0.82, Estimat Glomerular Filtration Rate > 60, BUN /Creatinine Ratio 23, Glucose Level 139H, Calcium Level 8.9, Corrected Calcium 9.7, Total Bilirubin 0.5, Aspartate Amino Transf (AST/SGOT) 15, Alanine Aminotransferase (ALT/SGPT) 13, Alkaline Phosphatase 56, Total Protein 5.9L, Albumin 3.0L 06/16/18 11:12: Glucometer 193H Microbiology 06/14/18 Blood Culture - Preliminary, Resulted No growth 06/14/18 Urine Culture - Final, Complete Serratia marcescens Assessment/Plan Assessment/Plan (1) Sepsis Status: Acute Assessment & Plan: 06/16: LA resolved, fever trending down, no fever in the last 24 hrs, Continue Rocephin to cover UTI Qualifiers: Qualified Codes: A41.9 - Sepsis, unspecified organism (2) Urinary tract infection Status: Acute Assessment & Plan: - Fever curve has improved, continue Rocephin, Culture pending 06/16: Culture growing Serratia, Sensitive to Rocephin, plan to transition to Cefdinir Qualifiers: Qualified Codes: N30.00 - Acute cystitis without hematuria (3) Urinary retention Status: Chronic Assessment & Plan: - Will consult Dr Boss given recent instrumentation 06/16: Will follow up with Dr Boss as outpatient, appt already scheduled, d/c wood today, continue Flomax (4) H/O traumatic brain injury Status: Chronic (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
[2018-06-16] MEDS: cefTRIAXone 1,000 MG/SWFI 10 ML IV PUSH IV SCH ×2 (15:26)
--- NOTE | 2018-06-16 15:31 | NUR ---
Attempted visit: RN and DEBONER tending to pt with door closed for privacy. Director Data Architecture will follow up as needed.
[2018-06-16] MEDS: TAMSULOSIN 0.4 MG (FLOMAX) CAP PO SCH (17:28)
--- NOTE | 2018-06-16 19:49 | NUR ---
Notified Dr. Salgado at this time that patient's wood was taken out today around 1100 in anticipation of discharge tomorrow and patient has since had urinary frequency going about every 30mins and only voiding 50cc per time. This RN states bladder scan showed 420cc urine in bladder. Dr. Salgado states to straight cath x1 and if patient start accumulating urine again to place wood cath. Will pass on to material handler 1st shift RN
--- NOTE | 2018-06-16 20:50 | NUR ---
STRAIGHT CATH PT PT PER DR ORDERS. 700 ML LIGHT YELLOW COLOR OUT. PT TOLERATED WELL.
[2018-06-16] MEDS: DIVALPROEX EXT RELEASE 500 MG (DEPAKOTE ER) TAB PO SCH (21:32)
[2018-06-17 00:51] VITALS: BP 164/71
[2018-06-17 04:31] LABS: BASOPHILS % (AUTO) 0 % (0-10); EOSINOPHILS % (AUTO) 0 % (0-10); HEMATOCRIT 36 % (40-54); HEMOGLOBIN 12.5 G/DL (13.3-17.7); LYMPHOCYTES % (AUTO) 28 % (12-44); MEAN CORPUSCULAR HEMOGLOBIN 31 PG (25-34); MEAN CORPUSCULAR HGB CONC 34 G/DL (32-36); MEAN CORPUSCULAR VOLUME 91 FL (80-99); MEAN PLATELET VOLUME 9.9 FL (7.4-10.4); MONOCYTES # (AUTO) 1.2 X 10^3 (0.0-1.0); MONOCYTES % (AUTO) 16 % (0-12); NEUTROPHILS # (AUTO) 3.9 X 10^3 (1.8-7.8); NEUTROPHILS % (AUTO) 55 % (42-75); PLATELET COUNT 144 10^3/uL (130-400); RED CELL DISTRIBUTION WIDTH 11.8 % (10.0-14.5); WHITE BLOOD COUNT 7.1 10^3/uL (4.3-11.0)
[2018-06-17 04:45] VITALS: BP_SYST 102; BP_SYST 116; BP_DIAS 50; BP_DIAS 73
[2018-06-17 04:48] LABS: BUN/CREATININE RATIO 25; CALCIUM 9.4 MG/DL (8.5-10.1); CARBON DIOXIDE 25 MMOL/L (21-32); CHLORIDE 99 MMOL/L (98-107); CREATININE SERUM 0.84 MG/DL (0.60-1.30); GFR ESTIMATED > 60; GLUCOSE 145 MG/DL (70-105); POTASSIUM 3.5 MMOL/L (3.6-5.0); SODIUM 136 MMOL/L (135-145)
[2018-06-17] MEDS: inSUlin ASPART (NovoLOG) 1 UNIT/0.01 ML (CHARGE PER UNIT) SC SCH ×2 (06:03→12:24)
--- NOTE | 2018-06-17 06:11 | NUR ---
PT VOIDED X2. BLADDER SCAN POST VOID [phone]. NEW ON AND 950ML OUT
[2018-06-17 08:00] VITALS: BP 114/74
[2018-06-17] MEDS: HYDROCHLOROTHIAZIDE 12.5 MG (HCTZ) CAP PO SCH (08:50)
[2018-06-17] MEDS: ASPIRIN E.C. 81 MG (ECOTRIN) TAB PO SCH (08:50)
[2018-06-17] MEDS: lisINopril 20 MG (PRINIVIL) TABLET PO SCH (08:50)
[2018-06-17] MEDS: ENOXAPARIN 60 MG/0.6 ML (LOVENOX) SYR SC SCH (08:50)
[2018-06-17] MEDS: LORATADINE (CLARITIN) 10 MG TAB PO SCH (08:50)
[2018-06-17] MEDS: SERTRALINE 50 MG (ZOLOFT) TABLET PO SCH (08:50)
[2018-06-17] MEDS ORDERED: KCL 20 MEQ TAB (K-DUR) PO NR (09:23)
--- NOTE | 2018-06-17 09:40 | Physical Therapy Daily Note ---
PT Daily Note-Current Subjective pt reports doing ok, agreeable to PT session, requesting commode at end of session, nsg notified Pain Numeric Pain Scale: 0-No Pain Appearance Pt sitting on BSC 1st attempt for PT session. 2nd attempt, pt sitting up in recliner awake and alert At end of session, pt sitting in recliner with nsg present, all needs being met Transfers Therapy Code Descriptions/Definitions Functional [place] Measure: 0=Not Assessed/NA 4=Minimal Assistance 1=Total Assistance 5=Supervision or Setup 2=Maximal Assistance 6=Modified [place] 3=Moderate Assistance 7=Complete [place] Therapy Quality Codes: 6 Independent with activity with or without an assistive device 5 Patient requires set up or clean up by helper. Patient completes activity by themselves 4 Supervision or touching assist (CGA). [place] provide cues , steadying assist 3 The helper provides less than half the effort to complete the activity 2 The helper provides more than half the effort to complete the activity 1 Dependent. The helper does all the effort to complete an activity 7 Patient refused to complete or attempt activity 9 The patient did not perform the activity before the current illness or injury 88 Not attempted due to Medical conditions or safety concerns Transfers (B, C, W/C) (FIM): 2 Sit to/from Stand: 2 retropulsion with all sit to from stand transfers, improved only slightly with instruction. 2-person assist Weight Bearing Right Lower Extremity: Right Weight Bearing/Tolerated Left Lower Extremity: Left Weight Bearing/Tolerated Exercises Supine Ex: Ankle pumps, Quad Set, Glut sets, Short Arc Quads, Straight leg raise, Hip abd/add Supine Reps: 20 Seated Therapy Exercises: Ankle pumps, Long arc quads, Chair press-ups, Hip flexion, Hip abd/add Seated Reps: 20 all exercises performed with BLE's, simultaneous motions with some ex's to incorporate trunk and core strengthening. Chair pushups performed emphasizing forward shoulders/upper trunk to decrease retropulsion Treatments functional mobility, strengthening, balance, transfer Assessment retropulsive movements PT [employer] Goals Retirement Goals PT [employer] Goals Time Frame: Jun 22, 2018 Transfers (B,C,W/C) (FIM): 4 Gait (FIM): 2 Gait distance (FIM): 6=528-53 ft Gait Assistive Device: FWW PT Plan Treatment/Plan Treatment Plan: Continue Plan of Care Treatment Plan: Bed Mobility, Education, Functional Activity Jigar, Functional Strength, Gait, Safety, Therapeutic Exercise, Transfers Treatment Duration: Jun 22, 2018 Frequency: 6 times per week Estimated Hrs Per Day: .5 hour per day Patient and/or Family Agrees t: Yes Safety Risks/Education Patient Education: Transfer Techniques, Correct Positioning, Safety Issues Teaching Recipient: Patient Teaching Methods: Demonstration, Discussion Response to Teaching: Verbalize Understanding, Reinforcement Needed Time/GCodes Time In: 915 Time Out: 930 Total Billed Treatment Time: 15 Total Billed Treatment 1 visit, EX x 1 unit VIDAL MOORE PTA Jun 17, 2018 09:40
[2018-06-17] MEDS ORDERED: CEFD300C3 PO (11:22)
--- NOTE | 2018-06-17 11:24 | Discharge Instructions ---
Discharge [facility]-PSYCHIATRIC Discharge Medications New, Converted or Re-Newed RX: Transmitted to Pharmacy New Medications: Cefdinir (Cefdinir) 300 Mg Capsule 300 MG PO BID for 5 Days, #10 CAP 0 Refills Continued Medications: Acetaminophen (Tylenol) 325 Mg Tablet 650 MG PO Q6H PRN for PAIN-MILD, TAB Aspirin (Aspirin EC) 81 Mg Tablet.dr 81 MG PO DAILY, TAB Cetirizine HCl (Zyrtec) 10 Mg Tablet 10 MG PO DAILY, TAB Cinnamon Bark (Cinnamon) 500 Mg Capsule 2000 MG PO DAILY, CAP Divalproex Sodium (Depakote ER) 500 Mg Tab.er.24h 2000 MG PO HS, TAB TAKES 4 (500MG) TABLETS Hydrocortisone (Hydrocortisone) 28.35 Gm Cream..g. TP DAILY, TUBE 1% APPLY TOPICALLY TO PSORIASIS AREA ON OUTER EAR UNTIL CLEAR Ibuprofen (Advil) 200 Mg Tablet 400 MG PO Q6H PRN for PAIN-MILD, TAB Insulin Lispro (Humalog) 100 Unit/1 Ml Vial SQ TIDWM, VIAL 141-180 = 2 UNITS 181-220 = 5 UNITS 221-280 = 8 UNITS 281-340 = 11 UNITS >340 = 14 UNITS Insulin Lispro (Humalog) 100 Unit/1 Ml Vial SQ HS, VIAL 161-200 = 2 UNITS 201-240 = 4 UNITS 241-300 = 6 UNITS 301-360 = 8 UNITS >360 = 10 UNITS >370 = NOTIFY PHYSICIAN Lisinopril/Hydrochlorothiazide (Lisinopril-Hctz 20-12.5 mg Tab) 1 Each Tablet 1 TAB PO DAILY, TAB Mag Hydrox/Al Hydrox/Simeth (Emeli-Lanta Liquid) 355 Ml Oral.susp 30 ML PO Q2H PRN for INDIGESTION, ML Magnesium Hydroxide (Milk of Magnesia) 400 Mg/5 Ml Oral.susp 30 ML PO DAILY PRN for CONSTIPATION-7TH LINE, ML Multivit-Min/FA/Lycopene/Lut (Centrum Silver Tablet) 1 Each Tablet 1 TAB PO DAILY, TAB Sertraline HCl (Sertraline HCl) 50 Mg Tablet 50 MG PO DAILY, TAB Tamsulosin HCl (Flomax) 0.4 Mg Cap 0.4 MG PO HS, CAP Timolol Maleate (Timolol Maleate 0.5%) 5 Ml Drops 1 DROP OU BID, EA Turmeric/Turmeric Root Extract (Turmeric 500 mg Capsule) 1 Each Capsule 1000 MG PO DAILY, CAP Patient Instructions Goal/Follow Up Appt: Follow up with Dr. Donohue as directed. Patient Instructions: Will need to keep catheter in until follow up with Dr. Donohue. Return to The Hospital For: Fever, shortness of breath Activity & Diet Discharge Diet: ADA Diet Activity as Tolerated: Yes Copy Copies To 1: FLORI DONOHUE MD, BETHANY N MD Jun 17, 2018 11:24
--- NOTE | 2018-06-17 11:24 | Discharge Summary ---
Diagnosis/Chief Complaint Date of Admission Jun 14, 2018 at 15:29 Date of Discharge June 17, 2018 Admission Diagnosis Admission Diagnosis Sepsis Urinary Tract Infection Discharge Diagnosis See problem list Problems/Diagnosis: (1) Sepsis Assessment & Plan: 06/16: LA resolved, fever trending down, no fever in the last 24 hrs, Continue Rocephin to cover UTI Switched to cedfdinir for discharge. Qualifiers: Qualified Codes: A41.9 - Sepsis, unspecified organism Status: Resolved Resolution Date/Time: 06/16/18 @ 07:35 (2) Urinary tract infection Assessment & Plan: - Fever curve has improved, continue Rocephin, Culture pending 06/16: Culture growing Serratia, Sensitive to Rocephin, plan to transition to Cefdinir 06/17 discharged on cefdinir Qualifiers: Qualified Codes: N30.00 - Acute cystitis without hematuria Status: Acute (3) Urinary retention Assessment & Plan: - Will consult Dr Donohue given recent instrumentation 06/16: Will follow up with Dr Donohue as outpatient, appt already scheduled, d/c wood today, continue Flomax 06/17: unable to void adequately without Wood, had to be replaced due to retention of 400 or more post-void, discharged with indwelling wood to follow up with Dr. Donohue. 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 states that the last couple of months he has been having increasing weakness on the right side. Patient underwent scope in Dr Donohue's office 3 days prior to admission and now has UTI. Patient has been having overflow incontinence and troubles voiding. Flomax was stopped about 1 month ago because of change in mood. states that nothing changed went medication was stopped in regards with mood but he started having increasing problems urinating. Discharge Summary-Simple/Stand Consultations Discharge Physical Examination Allergies: Coded Allergies: No Known Drug Allergies (Unverified , 06/14/18) Vitals & I&Os Vital Sign - Last 12Hours Date Time Temp Pulse Resp B/P (MAP) Pulse Ox O2 Delivery O2 Flow Rate FiO2 06/17/18 07:00 66 06/17/18 04:45 98.2 20 116/73 (87) 91 NIV CPAP Intake and Output 06/17/18 00:00 Intake Total 2070 ml Output Total 2000 ml Balance 70 ml General Appearance: Alert, No Acute Distress Respiratory: Clear to Auscultation, Normal Air Movement Cardiovascular: Regular Rate, No Murmurs Neuro: Normal Speech Hospital Course See final discharge diagnosis. Labs Laboratory Tests Test 06/16/18 11:12 06/16/18 16:02 06/16/18 21:19 06/17/18 03:55 Range/Units Glucometer 193 H 179 H 215 H 70-110 MG/DL White Blood Count 7.1 4.3-11.0 10^3/uL Red Blood Count 3.99 L 4.35-5.85 10^6/uL Hemoglobin 12.5 L 13.3-17.7 G/DL Hematocrit 36 L 40-54 % Mean Corpuscular Volume 91 80-99 FL Mean Corpuscular Hemoglobin 31 25-34 PG Mean Corpuscular Hemoglobin Concent 34 32-36 G/DL Red Cell Distribution Width 11.8 10.0-14.5 % Platelet Count 144 130-400 10^3/uL Mean Platelet Volume 9.9 7.4-10.4 FL Neutrophils (%) (Auto) 55 42-75 % Lymphocytes (%) (Auto) 28 12-44 % Monocytes (%) (Auto) 16 H 0-12 % Eosinophils (%) (Auto) 0 0-10 % Basophils (%) (Auto) 0 0-10 % Neutrophils # (Auto) 3.9 1.8-7.8 X 10^3 Lymphocytes # (Auto) 2.0 1.0-4.0 X 10^3 Monocytes # (Auto) 1.2 H 0.0-1.0 X 10^3 Eosinophils # (Auto) 0.0 0.0-0.3 10^3/uL Basophils # (Auto) 0.0 0.0-0.1 10^3/uL Sodium Level 136 135-145 MMOL/L Potassium Level 3.5 L 3.6-5.0 MMOL/L Chloride Level 99 98-107 MMOL/L Carbon Dioxide Level 25 21-32 MMOL/L Anion Gap 12 5-14 MMOL/L Blood Urea Nitrogen 21 H 7-18 MG/DL Creatinine 0.84 0.60-1.30 MG/DL Estimat Glomerular Filtration Rate > 60 BUN/Creatinine Ratio 25 Glucose Level 145 H 70-105 MG/DL Calcium Level 9.4 8.5-10.1 MG/DL Test 06/17/18 05:31 06/17/18 11:49 Range/Units Glucometer 154 H 197 H 70-110 MG/DL Discharge Instructions to patient/family Please see electronic discharge instructions given to patient. Discharge Medications Reviewed and agree with Discharge Medication list on patient's Discharge Instruction sheet Clinical Quality Measures DVT/VTE Risk/Contraindication: Risk Factor Score Per Nursin RFS Level Per Nursing on Admit: 4+=Very High Copy Copies To 1: FLORI DONOHUE MD Copies To 2: EBEN Major BETHANY N MD Jun 17, 2018 11:24
[2018-06-17] MEDS: cefTRIAXone 1,000 MG/SWFI 10 ML IV PUSH IV SCH ×2 (13:36)
[2018-06-17 14:00] VITALS: BP 114/74
== END 2018-06-17 15:07 | DRG 872 ==
LOC: EDUNIT# 12:51 → ER 12:52 → 4TH 15:29
PROVIDERS: ADMIT Family Medicine; ATTEND Family Medicine
DX: A41.9 Sepsis, unspecified organism (principal); N30.00 Acute cystitis without hematuria; R33.9 Retention of urine, unspecified; I10 Essential (primary) hypertension; E11.49 Type 2 diabetes mellitus with other diabetic neurological complication; M79.605 Pain in left leg; M79.604 Pain in right leg; H54.7 Unspecified visual loss; Z66 Do not resuscitate; Z87.820 Personal history of traumatic brain injury; Z79.4 Long term (current) use of insulin
CPT/HCPCS: 36415; 70450; 71045; 80048; 80053; 80061; 81000; 82962; 83605; 84484; 85007; 85025; 85027; 85379; 85610; 85730; 87040; 87077; 87088; 87186; 93005; 93041; 93970; 96361; 96374

== ENCOUNTER → 2020-01-15 | Outpatient (CLI) | payer MEDICARE ==
[~2020-01-15] MED LIST: ACET325T38 PO; ASPI-1238 PO; CEFD300C3 PO; CETI10TA49 PO; CINN500C2 PO; DIVA-21 PO; DIVA500T15; HYDR28.3 TP; IBUP-30 PO; INSU100V SQ; LISI1TAB46 PO; MAG-10 PO; MAGN400O7 PO; MULT-1029 PO; SERT50TA9 PO; TEST200V27 IM; TIMO5DRO5 OU; TMSL.4C PO; TURM500C4 PO
[2020-01-15 22:23] LABS: BILIRUBIN,URINE NEGATIVE (NEGATIVE); CLARITY,URINE SL CLOUDY; COLOR,URINE YELLOW; GLUCOSE, URINE (UA) NEGATIVE (NEGATIVE); KETONES,URINE TRACE (NEGATIVE); LEUKOCYTE ESTERASE ,URINE 1+ (NEGATIVE); NITRITE,URINE NEGATIVE (NEGATIVE); PH,URINE 6.5 (5-9); PROTEIN,URINE NEGATIVE (NEGATIVE)
[2020-01-16 00:14] LABS: AMORPHOUS SEDIMENT,UR RARE AMOR URATES /LPF; BACTERIA,URINE TRACE /HPF
== END ==
LOC: CVS 22:14
PROVIDERS: ATTEND Internal Medicine
DX: E11.65 Type 2 diabetes mellitus with hyperglycemia (principal); S06.9X9S Unspecified intracranial injury with loss of consciousness of unspecified duration, sequela; Z87.820 Personal history of traumatic brain injury
CPT/HCPCS: 81000; 87088

== ENCOUNTER → 2020-10-19 | Outpatient (CLI) | payer MEDICARE, MEDICAID ==
[~2020-10-19] MED LIST changes: +SERT-413 PO; -SERT50TA9 PO
[2020-10-19 18:10] LABS: BILIRUBIN,URINE NEGATIVE (NEGATIVE); CLARITY,URINE CLOUDY; COLOR,URINE YELLOW; GLUCOSE, URINE (UA) NEGATIVE (NEGATIVE); KETONES,URINE NEGATIVE (NEGATIVE); LEUKOCYTE ESTERASE ,URINE 1+ (NEGATIVE); NITRITE,URINE POSITIVE (NEGATIVE); PH,URINE 8.5 (5-9); PROTEIN,URINE 2+ (NEGATIVE)
[2020-10-19 18:22] LABS: BACTERIA,URINE LARGE /HPF; RBC,URINE 0-2 /HPF; TRIPLE PHOSPHATE CRYSTAL,UR MODERATE /LPF; WBC,URINE 50-100 /HPF
== END ==
LOC: CVS 06:45
PROVIDERS: ATTEND Family Medicine
DX: Z01.89 Encounter for other specified special examinations (principal)
CPT/HCPCS: 81000; 87077; 87088; 87186

== ENCOUNTER 2021-03-03 12:21 | Inpatient (IN) | payer MEDICARE, MEDICAID ==
[~2021-03-03] VITALS: Ht 175.3 cm; Wt 128.7 kg
[2021-03-03] MEDS ORDERED: LACTATED RINGERS 1,000 ML IV ONE (12:30)
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
[2021-03-03 12:44] VITALS: BP 102/65
[2021-03-03 12:44] LABS: ABG BASE EXCESS -3.7 MMOL/L (-2.5-2.5); ABG OXYGEN SATURATION 96 % (94-100); ABG PCO2 41 MMHG (35-45); ABG PO2 81 MMHG (79-93); ABG TCO2 22.8 MMOL/L (21.0-31.0)
[2021-03-03 12:46] LABS: ABG PH 7.33 (7.37-7.43)
[2021-03-03 12:47] LABS: BASOPHILS # (AUTO) 0.1 10^3/uL (0.0-0.1); BASOPHILS % (AUTO) 0 % (0-10); EOSINOPHILS # (AUTO) 0.1 10^3/uL (0.0-0.3); EOSINOPHILS % (AUTO) 0 % (0-10); HEMATOCRIT 50 % (40-54); HEMOGLOBIN 16.9 g/dL (13.3-17.7); LYMPHOCYTES # (AUTO) 3.7 10^3/uL (1.0-4.0); LYMPHOCYTES % (AUTO) 19 % (12-44); MEAN CORPUSCULAR HEMOGLOBIN 31 pg (25-34); MEAN CORPUSCULAR HGB CONC 34 g/dL (32-36); MEAN CORPUSCULAR VOLUME 92 fL (80-99); MEAN PLATELET VOLUME 9.8 fL (9.0-12.2); MONOCYTES % (AUTO) 5 % (0-12); NEUTROPHILS # (AUTO) 14.5 10^3/uL (1.8-7.8); NEUTROPHILS % (AUTO) 74 % (42-75); PLATELET COUNT 235 10^3/uL (130-400); WHITE BLOOD COUNT 19.5 10^3/uL (4.3-11.0)
[2021-03-03 12:47] LABS: ALLENS TEST POSITIVE; PATIENT TEMP 36; VENTILATOR NO
--- NOTE | 2021-03-03 12:49 | Diagnostic Imaging Report ---
HISTORY: Chest pain. COMPARISON: 06/14/2018. TECHNIQUE: Frontal view of the chest. FINDINGS: Lung volumes are low. No consolidation is seen. There is no pleural effusion or pneumothorax. The cardiac silhouette is normal in size. IMPRESSION: 1. Low lung volumes with no acute pulmonary abnormality seen. Dictated by: Dictated on workstation # [id number]
[2021-03-03 13:00] LABS: POTASSIUM 3.4 MMOL/L (3.6-5.0)
[2021-03-03] MEDS ORDERED: LACTATED RINGERS 1,000 ML IV SCH ×2 (13:00→15:30)
[2021-03-03 13:01] LABS: CALCIUM 9.7 MG/DL (8.5-10.1)
[2021-03-03 13:02] LABS: TOTAL PROTEIN 8.4 GM/DL (6.4-8.2)
[2021-03-03 13:04] LABS: BILIRUBIN,TOTAL 0.9 MG/DL (0.1-1.0)
[2021-03-03 13:06] LABS: CREATININE SERUM 1.28 MG/DL (0.60-1.30)
[2021-03-03 13:09] LABS: MAGNESIUM 1.7 MG/DL (1.6-2.4)
[2021-03-03 13:23] LABS: PROTHROMBIN TIME PATIENT 13.8 SEC (12.2-14.7)
[2021-03-03] MEDS ORDERED: ASPIRIN 81 MG CHEW (CHILDREN'S ASA) PO ONE (13:30)
[2021-03-03 13:35] LABS: BAND NEUTROPHILS 3 %; BASOPHILS % (MANUAL) 0 %; EOSINOPHILS % (MANUAL) 0 %; LYMPHOCYTES % (MANUAL) 5 %; MONOCYTES % (MANUAL) 3 %; NEUTROPHILS % (MANUAL) 77 %; RBC MORPH NORMAL; REACTIVE LYMPHOCYTES 12 %
[2021-03-03] MEDS ORDERED: CATHETER FLUSH 10 ML SYR IV PRN (13:45)
[2021-03-03] MEDS ORDERED: NS 100 ML (IVPB) BAG IV ONE (13:45)
[2021-03-03] MEDS ORDERED: HOLD METFORMIN - RECEIVED CONTRAST 20 ML VIAL IV SCH (13:45)
[2021-03-03] MEDS ORDERED: IOHEXOL 350 MG/ML 100 ML (OMNIPAQUE 350) VIAL IV ONE (13:45)
[2021-03-03] MEDS ORDERED: CEFEPIME INJECTION 1,000 MG in NS (IVPB) 50 ML IV ONE (14:00)
[2021-03-03] MEDS ORDERED: methylPREDNISolone 125 MG (Solu-MEDROL) VIAL IVP ONE (14:00)
[2021-03-03] MEDS ORDERED: LIDOCAINE UROJET 2% GEL 10 ML PKG ONE (15:08)
[2021-03-03] MEDS ORDERED: LIDOCAINE UROJET 2% GEL 10 ML PKG TOP ONE (15:15)
--- NOTE | 2021-03-03 15:17 | Diagnostic Imaging Report ---
EXAMINATION: CT angiography chest with and without, CT abdomen and pelvis with and without. TECHNIQUE: Noncontrast enhanced helical images were obtained through the chest, abdomen, and pelvis. Contrast enhanced thin section helical images were obtained through the chest, abdomen, and pelvis with intravenous contrast timed for the optimal opacification of the arterial structures per departmental CTA protocol. Post-processing, retro reconstructions, and interpretation of angiographic images of the vessels was performed. 3D MIP reconstructions were performed and reviewed. All CT scans use one or more of the following dose optimizing techniques: automated exposure control, MA and/or KvP adjustment based on patient size and exam type or iterative reconstruction. HISTORY: Respiratory distress, leukocytosis. COMPARISON: None available. FINDINGS: There is no pulmonary embolism. There are patchy areas of groundglass and consolidation in the left lower lobe. No pleural effusion. No pneumothorax. There is no axillary or supraclavicular lymphadenopathy. There is no mediastinal lymphadenopathy. Heart size is normal. There are mild coronary artery calcifications. No pericardial effusion. Aorta is normal in caliber. The liver is normal without focal lesion. There is no biliary ductal dilation. Gallbladder is normal. Pancreas is normal. Spleen is normal. Adrenal glands are normal. The kidneys are normal. There is no hydronephrosis. Bladder is distended. There is a large volume of stool in the rectum and sigmoid colon. There is surrounding fat stranding in the sigmoid colon, concerning for stercoral colitis. There is liquid stool upstream. No dilated small bowel. No free fluid or air. No abdominal or pelvic lymphadenopathy. Aorta is normal in caliber without aneurysm. There are no suspicious osseus lesions. IMPRESSION: 1. No pulmonary embolism. 2. Mild patchy areas of groundglass and consolidation in the left lower lobe, suggestive of pneumonia 3. Large amount of stool in the rectum and sigmoid colon with fat stranding in the mesentery of the sigmoid colon. Findings are concerning for stercoral colitis. No abscess or perforation. Dictated by: Dictated on workstation # [id number]
[2021-03-03 15:23] LABS: BILIRUBIN,URINE NEGATIVE (NEGATIVE); CLARITY,URINE SL CLOUDY; COLOR,URINE YELLOW; GLUCOSE, URINE (UA) NEGATIVE (NEGATIVE); KETONES,URINE NEGATIVE (NEGATIVE); LEUKOCYTE ESTERASE ,URINE 1+ (NEGATIVE); NITRITE,URINE NEGATIVE (NEGATIVE); PROTEIN,URINE NEGATIVE (NEGATIVE)
[2021-03-03 15:45] LABS: RBC,URINE 0-2 /HPF
[2021-03-03 15:46] LABS: BACTERIA,URINE TRACE /HPF; YEAST,URINE MODERATE /HPF
[2021-03-03] MEDS ORDERED: BISACODYL 10 MG SUPP (DULCOLAX) PR PRN (19:00)
[2021-03-03] MEDS ORDERED: ANTACID SUSP 30 ML UDC (MYLANTA) PO PRN (19:00)
[2021-03-03] MEDS ORDERED: MELATONIN 3 MG TABLET PO PRN (19:00)
[2021-03-03] MEDS ORDERED: polyethylene glycoL POWDER 17 GM (MIRALAX) PACK PO PRN (19:00)
[2021-03-03] MEDS ORDERED: ONDANSETRON 4 MG (ZOFRAN) ORAL DISSOLVE TAB PO PRN (19:00)
[2021-03-03] MEDS: ENOXAPARIN 40 MG/0.4 ML (LOVENOX) SYR SC SCH (19:13)
[2021-03-03] MEDS ORDERED: NS (IVPB) 50 ML ONE (19:54)
[2021-03-03] MEDS ORDERED: CEFEPIME 1 GM/10 ML (MAXIPIME) VIAL ONE (19:54)
[2021-03-03 19:57] VITALS: BP 116/84
[2021-03-03] MEDS: CEFEPIME INJECTION 1,000 MG in NS (IVPB) 50 ML IV SCH (20:07)
[2021-03-03] MEDS: LACTATED RINGERS 1,000 ML IV SCH (20:07)
[2021-03-03] MEDS ORDERED: RT-ALBUTEROL HFA 8.5 GM INHALER IH PRN (20:15)
[2021-03-03] MEDS ORDERED: inSUlin ASPART (NovoLOG) 1 UNIT/0.01 ML (CHARGE PER UNIT) ONE (20:18)
[2021-03-03] MEDS: inSUlin ASPART (NovoLOG) 1 UNIT/0.01 ML (CHARGE PER UNIT) SC SCH (20:20)
[2021-03-03] MEDS ORDERED: ONDANSETRON 4 MG/2 ML (SDV) Z0FRAN ONE (20:35)
[2021-03-03] MEDS: ONDANSETRON 4 MG/2 ML (SDV) Z0FRAN IV PRN (20:36)
[2021-03-03] MEDS: SENNOSIDES 8.6 MG (SENOKOT) TAB PO SCH (21:00)
[2021-03-03] MEDS: DOCUSATE SODIUM 100 MG (COLACE) CAP PO SCH (21:00)
[2021-03-03] MEDS: NS IV 500 ML 500 ML IV SCH (21:30)
--- NOTE | 2021-03-03 21:31 | Tele-ICU Progress Note ---
Subjective Date Seen by a Provider: Mar 03, 2021 Time Seen by a Provider: 21:29 Subjective/Events-last exam pt has hematuria/ bloody loose BM; BP dropped<100 sytolic; pt is dnr Sepsis Event Evaluation Height, Weight, BMI Height: 5'7.00" Weight: 400lbs. 0.0oz. 181.023589ah; 31.00 BMI Method:Estimated Focused Exam Lactate Level 03/03/21 17:20: Lactic Acid Level 6.03*H 03/03/21 19:15: Lactic Acid Level 1.77 03/03/21 21:05: Lactic Acid Level Laboratory Tests Test 03/03/21 19:15 03/03/21 21:05 Lactic Acid Level 1.77 MMOL/L (0.50-2.00) Exam Exam Patient acknowledged, consented, and participated in this virtual visit which was conducted using real time audio/video Vital Signs Date Time Temp Pulse Resp B/P (MAP) Pulse Ox O2 Delivery O2 Flow Rate FiO2 03/03/21 20:00 36.5 03/03/21 19:57 98 99 40 03/03/21 19:01 99 Vapotherm 20.00 40 03/03/21 17:21 84 13 116/84 100 03/03/21 12:44 51 28 99 100.00 03/03/21 12:22 Venturi Mask 15.00 03/03/21 12:22 36.2 52 18 102/65 (77) 90 OxyMask 15.00 03/03/21 12:22 90 Simple Mask 15.00 Height & Weight Height: 5'7.00" Weight: 400lbs. 0.0oz. [id number]; 31.00 BMI Method:Estimated General Appearance: No Apparent Distress, WD/WN, Chronically ill, Obese, Other (Hypotensive, hypoxic. 95% on wall oxygen maxed out over 15 L. Current blood pressure is 102/65 heart rate 52 sinus. Respiratory rate 36. Diaphoretic. R honchi noted.) Neck: Full Range of Motion, Normal Inspection Respiratory: Decreased Breath Sounds, Rhonci Capillary Refill: Less Than 3 Seconds Extremity: Normal Capillary Refill, Normal Inspection, Pedal Edema (2+ bilateral lower extremities) Neurologic/Psychiatric: Alert Skin: Normal Color, Warm/Dry Results Lab Laboratory Tests 03/03/21 12:30 Assessment/Plan Assessment/Plan Hypovolemic, hemorrhagic shock -cbc/ coag profile fluid bolus may need blood product transfusion if hb<8, INR>1.4 MARCELLA CARCAMO MD Mar 03, 2021 21:31
[2021-03-03] MEDS ORDERED: NS IV 500 ML 500 ML ONE (21:40)
--- NOTE | 2021-03-03 21:50 | History & Physical-Hospitalist ---
History of Present Illness HPI/Chief Complaint Jose Saini is a 70 year old male with PMH cognitive impairment due to history of TBI, CHF, COPD, KAYLEY on CPAP, obesity, who presented with shortness of breath. He is a poor historian due to his TBI. He is able to tell me that he is not in pain. He also denies shortness of breath. He does not voice any complaints. Upon examination in the ER, he was found to have pneumonia as well as coliitis with a large stool burden. Source: RN/MD Exam Limitations: clinical condition Date Seen 03/03/21 Time Seen by a Provider: 19:00 Attending Physician Terri Purdy MD PCP Teresa Houston MD Referring Physician Date of Admission Mar 03, 2021 at 15:31 Home Medications & Allergies Home Medications Reviewed patient Home Medication Reconciliation performed by pharmacy medication reconciliations prior authorization technician and/or nursing. Patients Allergies have been reviewed. Allergies Allergies Coded Allergies No Known Drug Allergies (Unverified06/14/18) Past Bmfhmfk-Kbckcy-Kabzco Hx Patient Social History Tobacco Use?: No Smoking Status: Never a Smoker Smokeless Tobacco Frequency: Never a User Use of E-Cig and/or Vaping dev: No Use of E-Cig and/or Vaping Andrew: Never a User Substance use?: No Alcohol Use?: No Immunizations Up To Date Tetanus Booster (TDap): Unknown Date of Pneumonia Vaccine: Apr 12, 2018 Seasonal Allergies Seasonal Allergies: No Current Status Advance Directives: No Communicates: Verbally Primary Language: [place] Preferred Spoken Language: [place] Is interpretation needed?: No Implanted or Applied Medical D: None Past Medical History Surgeries: Orthopedic Sleep Apnea Currently Using CPAP: Yes Loss of Vision: Left Sleep Difficulties, Depression Blood Disorders: No TBI 20 years ago IDDM HTN Urinary Retention Family Medical History No Pertinent Family Hx Review of Systems Constitutional: see HPI Respiratory: short of breath Physical Exam Physical Exam Vital Signs Vital Signs - First Documented 03/03/21 19:01 FiO2 40 Capillary Refill : Less Than 3 Seconds Height, Weight, BMI Height: 5'7.00" Weight: 400lbs. 0.0oz. 181.512438gf; 31.00 BMI Method:Estimated General Appearance: No Apparent Distress, Obese HEENT: PERRL/EOMI, Pharynx Normal Neck: Normal Inspection, Supple Respiratory: No Respiratory Distress, Decreased Breath Sounds Cardiovascular: No Murmur, Tachycardia Gastrointestinal: Soft, Abnormal Bowel Sounds (hypoactive), Tenderness (deep palpation diffusely) Extremity: Normal Inspection, Pedal Edema Neurologic/Psychiatric: Alert, Disoriented Skin: Normal Color, Warm/Dry Results Results/Procedures Labs Laboratory Tests 03/03/21 12:30 03/03/21 22:10 03/04/21 03:10 Patient resulted labs reviewed. Imaging: Reviewed Imaging Report Assessment/Plan Admission Diagnosis Septic shock Admission Status: Inpatient Order (span 2 midnights) Reason for Inpatient Admission: Pneumonia Colitis Assessment and Plan Septic shock Pneumonia Colitis Lactic acidosis Obstipation Possible GI bleeding CT consistent with pneumonia Lactic acid >4 Started on Cefepime Multiple stools since admission Surgery consulted IV fluids TBI COPD CHF Obesity DVT prophylaxis: Lovenox Diagnosis/Problems Diagnosis/Problems (1) Septic shock Status: Acute (2) Pneumonia Status: Acute (3) Lactic acidosis Status: Acute (4) Stercoral colitis Status: Acute (5) Morbid obesity Status: Chronic (6) TBI (traumatic brain injury) Status: Chronic TERRI PURDY MD Mar 03, 2021 21:50
[2021-03-03 22:20] LABS: BASOPHILS % (AUTO) 0 % (0-10); EOSINOPHILS % (AUTO) 0 % (0-10); HEMATOCRIT 53 % (40-54); LYMPHOCYTES # (AUTO) 1.1 10^3/uL (1.0-4.0); LYMPHOCYTES % (AUTO) 6 % (12-44); MEAN CORPUSCULAR HEMOGLOBIN 31 pg (25-34); MEAN CORPUSCULAR HGB CONC 34 g/dL (32-36); MEAN CORPUSCULAR VOLUME 91 fL (80-99); MEAN PLATELET VOLUME 9.9 fL (9.0-12.2); MONOCYTES # (AUTO) 1.2 10^3/uL (0.0-1.0); MONOCYTES % (AUTO) 6 % (0-12); NEUTROPHILS # (AUTO) 17.9 10^3/uL (1.8-7.8); NEUTROPHILS % (AUTO) 88 % (42-75); PLATELET COUNT 197 10^3/uL (130-400); WHITE BLOOD COUNT 20.4 10^3/uL (4.3-11.0)
[2021-03-03] MEDS: RT-ALBUTEROL HFA 8.5 GM INHALER IH SCH (22:33)
[2021-03-03 22:43] LABS: INR 1.1 (0.8-1.4); PROTHROMBIN TIME PATIENT 14.2 SEC (12.2-14.7)
[2021-03-03 22:58] LABS: BAND NEUTROPHILS 2 %; LYMPHOCYTES % (MANUAL) 6 %; MONOCYTES % (MANUAL) 6 %; NEUTROPHILS % (MANUAL) 86 %
[2021-03-03 22:59] LABS: RBC MORPH NORMAL
[2021-03-04] MEDS ORDERED: NS IV 500 ML 500 ML ONE (00:14)
[2021-03-04] MEDS: CEFEPIME INJECTION 1,000 MG in NS (IVPB) 50 ML IV SCH ×4 (00:15→18:18)
[2021-03-04] MEDS: RT-ALBUTEROL HFA 8.5 GM INHALER IH SCH ×6 (02:28→20:35)
[2021-03-04] MEDS: LACTATED RINGERS 1,000 ML IV SCH ×4 (02:37→21:22)
[2021-03-04 03:22] LABS: BASOPHILS # (AUTO) 0.1 10^3/uL (0.0-0.1); BASOPHILS % (AUTO) 0 % (0-10); EOSINOPHILS % (AUTO) 0 % (0-10); HEMATOCRIT 51 % (40-54); HEMOGLOBIN 17.4 g/dL (13.3-17.7); LYMPHOCYTES # (AUTO) 0.7 10^3/uL (1.0-4.0); LYMPHOCYTES % (AUTO) 4 % (12-44); MEAN CORPUSCULAR HEMOGLOBIN 31 pg (25-34); MEAN CORPUSCULAR HGB CONC 34 g/dL (32-36); MEAN CORPUSCULAR VOLUME 91 fL (80-99); MEAN PLATELET VOLUME 9.7 fL (9.0-12.2); MONOCYTES # (AUTO) 1.6 10^3/uL (0.0-1.0); MONOCYTES % (AUTO) 8 % (0-12); NEUTROPHILS # (AUTO) 16.8 10^3/uL (1.8-7.8); NEUTROPHILS % (AUTO) 87 % (42-75); PLATELET COUNT 159 10^3/uL (130-400); WHITE BLOOD COUNT 19.3 10^3/uL (4.3-11.0)
[2021-03-04 03:36] LABS: POTASSIUM 4.1 MMOL/L (3.6-5.0)
[2021-03-04 03:37] LABS: CALCIUM 8.6 MG/DL (8.5-10.1)
[2021-03-04 03:39] LABS: TRIGLYCERIDES 82 MG/DL (<150); VLDL CHOLESTEROL 16 MG/DL (5-40)
[2021-03-04 03:42] LABS: CREATININE SERUM 1.24 MG/DL (0.60-1.30)
[2021-03-04 03:44] LABS: CHOLESTEROL 101 MG/DL (< 200); MAGNESIUM 1.4 MG/DL (1.6-2.4)
[2021-03-04 03:45] LABS: HDL CHOLESTEROL 29 MG/DL (40-60)
[2021-03-04] MEDS: POTASSIUM CL 10MEQ/50ML IVPB 50 ML IV SCH (05:06)
[2021-03-04] MEDS: MAGNESIUM 1 GM/100 ML IVPB 100 ML IV SCH ×3 (05:06→06:07)
[2021-03-04] MEDS: KCL 20 MEQ TAB (K-DUR) PO SCH (05:06)
[2021-03-04] MEDS: inSUlin ASPART (NovoLOG) 1 UNIT/0.01 ML (CHARGE PER UNIT) SC SCH ×4 (05:19→21:12)
[2021-03-04] MEDS: ACETAMINOPHEN 325 MG TABLET PO PRN ×2 (05:21→22:35)
[2021-03-04] MEDS: ONDANSETRON 4 MG/2 ML (SDV) Z0FRAN IV PRN (06:51)
[2021-03-04] MEDS: DOCUSATE SODIUM 100 MG (COLACE) CAP PO SCH ×2 (09:00→21:01)
[2021-03-04] MEDS: SENNOSIDES 8.6 MG (SENOKOT) TAB PO SCH ×2 (09:00→21:01)
[2021-03-04] MEDS ORDERED: NS IV 1000 ML 1,000 ML IV SCH (10:45)
[2021-03-04] MEDS ORDERED: NS IV 1000 ML 1,000 ML IV PRN (11:00)
--- NOTE | 2021-03-04 11:59 | Consultation - Surgery ---
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 ground emesis last night, but hasn't had any today. Per CTA patient had large amount of stool present in rectal vault and sigmoid colon. On exam he did have some abdominal distension and firmness w/ associated pain across lower abdomen. possibly due to obstruction, may also have a colitis going on. If emesis begins again then may consider NG tube to decompress. Currently has Dulcolax, docusate, and miralax to help with BM's. Doesn't appear to have had any miralax yet. Would like to see if we can clear stools w/ medications first. If doesn't resolve and emesis reappears than may be necessary to perform exploratory Laparotomy. 2.) Patient has wood catheter in place, will leave there for now to prevent retention. 3.) Consider ordering prostate Ultrasound and consulting urology. 4, 5, & 6.) Continue IV antibiotics at this time and monitor Supervisory-Addendum Brief Verification & Attestation Participated in pt care: history, MDM, physical Personally performed: exam, history, MDM, supervision of care Care discussed with: Medical Student Procedures: n/a Results interpretation: Verified all documentation Verification and Attestation of Medical Student E/M Service A medical student performed and documented this service. I then reviewed and verified all information documented by the medical student and made modifications to such information, when appropriate. I personally performed a physical exam, medical decision making and then discussed any differences between the notes and made revisions as necessary to create one note. Heather Elizabeth , 03/04/21 , 16:41 SHARI TAPIA Mar 04, 2021 11:59 HEATHER ELIZABETH DO Mar 04, 2021 16:31
[2021-03-04] MEDS ORDERED: ATOR40TA70 PO (14:24)
[2021-03-04] MEDS ORDERED: METF-478 PO (14:24)
[2021-03-04] MEDS ORDERED: SEMA1PEN3 SQ (14:24)
[2021-03-04] MEDS ORDERED: TMSL.4C PO (14:24)
[2021-03-04] MEDS ORDERED: MAG-10 PO (14:24)
[2021-03-04] MEDS ORDERED: GABA300C PO (14:24)
[2021-03-04] MEDS ORDERED: BETH25TA2 PO (14:24)
[2021-03-04] MEDS ORDERED: DESV50TA8 PO (14:24)
[2021-03-04] MEDS ORDERED: GUAI600T43 PO (14:24)
[2021-03-04] MEDS: NS IV 500 ML 500 ML IV SCH (14:59)
--- NOTE | 2021-03-04 16:11 | Progress Note - Hospitalist ---
Subjective HPI/CC On Admission Date Seen by Provider: Mar 04, 2021 Time Seen by Provider: 09:55 Jose Saini is a 70 year old male with PMH cognitive impairment due to history of TBI, CHF, COPD, KAYLEY on CPAP, obesity, who presented with shortness of breath. He is a poor historian due to his TBI. He is able to tell me that he is not in pain. He also denies shortness of breath. He does not voice any complaints. Upon examination in the ER, he was found to have pneumonia as well as coliitis with a large stool burden. Subjective/Events-last exam He is sleeping. He does not provide any information. Focused Exam Lactate Level 03/04/21 09:52: Lactic Acid Level 2.86*H 03/04/21 12:10: Lactic Acid Level 4.38*H 03/04/21 14:57: Lactic Acid Level 4.90*H Lactic Acid Level Laboratory Tests Test 03/04/21 12:10 03/04/21 14:57 Lactic Acid Level 4.38 MMOL/L (0.50-2.00) *H 4.90 MMOL/L (0.50-2.00) *H Objective Exam Vital Signs Vital Signs Date Time Temp Pulse Resp B/P (MAP) Pulse Ox O2 Delivery O2 Flow Rate FiO2 03/04/21 14:36 98 Vapotherm 20.00 40 03/04/21 13:00 123 03/04/21 11:48 37.2 03/04/21 11:00 32 89/63 Capillary Refill : Less Than 3 Seconds General Appearance: No Apparent Distress, Obese Respiratory: No Respiratory Distress, Decreased Breath Sounds Cardiovascular: No Murmur, Tachycardia Gastrointestinal: Soft, Abnormal Bowel Sounds (hypoactive) Extremity: Normal Inspection, Pedal Edema Skin: Normal Color, Warm/Dry Results/Procedures Lab Laboratory Tests 03/03/21 22:10 03/04/21 03:10 Patient resulted labs reviewed. Imaging: Reviewed Imaging Report Assessment/Plan Assessment and Plan Assess & Plan/Chief Complaint Septic shock Pneumonia Colitis Lactic acidosis Obstipation Possible GI bleeding CT consistent with pneumonia Lactic acid >4, persistently elevated despite fluid resuscitation Continue Cefepime Multiple stools since admission Surgery consulted IV fluids Protonix TBI COPD CHF Obesity DVT prophylaxis: Lovenox Diagnosis/Problems Diagnosis/Problems (1) Septic shock Status: Acute (2) Pneumonia Status: Acute (3) Lactic acidosis Status: Acute (4) Stercoral colitis Status: Acute (5) Morbid obesity Status: Chronic (6) TBI (traumatic brain injury) Status: Chronic TERRI PURDY MD Mar 04, 2021 16:11
[2021-03-04 16:14] LABS: ABG BASE EXCESS -0.6 MMOL/L (-2.5-2.5); ABG OXYGEN SATURATION 94 % (94-100); ABG PCO2 38 MMHG (35-45); ABG PH 7.41 (7.37-7.43); ABG PO2 67 MMHG (79-93); ABG TCO2 24.8 MMOL/L (21.0-31.0)
[2021-03-04 16:15] LABS: ALLENS TEST POSITIVE; INSPIRED O2 40%; VENTILATOR NO
[2021-03-04] MEDS ORDERED: PANTOPRAZOLE 40 MG (PROTONIX) VIAL IV ONE (16:15)
[2021-03-04 16:16] LABS: PATIENT TEMP 36.4
[2021-03-04] MEDS: ENOXAPARIN 40 MG/0.4 ML (LOVENOX) SYR SC SCH (17:38)
[2021-03-04] MEDS: PANTOPRAZOLE 40 MG (PROTONIX) VIAL IV SCH (21:01)
[2021-03-05] MEDS: CEFEPIME INJECTION 1,000 MG in NS (IVPB) 50 ML IV SCH ×4 (01:33→17:55)
[2021-03-05] MEDS: RT-ALBUTEROL HFA 8.5 GM INHALER IH SCH ×6 (02:05→22:09)
[2021-03-05 04:47] LABS: BASOPHILS # (AUTO) 0.1 10^3/uL (0.0-0.1); BASOPHILS % (AUTO) 0 % (0-10); EOSINOPHILS # (AUTO) 0.4 10^3/uL (0.0-0.3); EOSINOPHILS % (AUTO) 2 % (0-10); HEMATOCRIT 47 % (40-54); HEMOGLOBIN 15.9 g/dL (13.3-17.7); LYMPHOCYTES # (AUTO) 1.3 10^3/uL (1.0-4.0); LYMPHOCYTES % (AUTO) 6 % (12-44); MEAN CORPUSCULAR HEMOGLOBIN 31 pg (25-34); MEAN CORPUSCULAR HGB CONC 34 g/dL (32-36); MEAN CORPUSCULAR VOLUME 92 fL (80-99); MEAN PLATELET VOLUME 9.6 fL (9.0-12.2); MONOCYTES # (AUTO) 1.5 10^3/uL (0.0-1.0); MONOCYTES % (AUTO) 8 % (0-12); NEUTROPHILS # (AUTO) 16.5 10^3/uL (1.8-7.8); NEUTROPHILS % (AUTO) 82 % (42-75); PLATELET COUNT 128 10^3/uL (130-400); WHITE BLOOD COUNT 20.1 10^3/uL (4.3-11.0)
[2021-03-05 04:58] LABS: POTASSIUM 4.2 MMOL/L (3.6-5.0)
[2021-03-05 04:59] LABS: CALCIUM 8.3 MG/DL (8.5-10.1)
[2021-03-05 05:03] LABS: CREATININE SERUM 1.14 MG/DL (0.60-1.30); PHOSPHORUS 4.3 MG/DL (2.3-4.7)
[2021-03-05 05:05] LABS: MAGNESIUM 1.8 MG/DL (1.6-2.4)
[2021-03-05] MEDS: POTASSIUM CL 10MEQ/50ML IVPB 50 ML IV SCH (05:05)
[2021-03-05] MEDS: KCL 20 MEQ TAB (K-DUR) PO SCH (05:05)
[2021-03-05] MEDS: MAGNESIUM 1 GM/100 ML IVPB 100 ML IV SCH (05:06)
[2021-03-05] MEDS: inSUlin ASPART (NovoLOG) 1 UNIT/0.01 ML (CHARGE PER UNIT) SC SCH ×4 (05:30→20:33)
[2021-03-05] MEDS: NS IV 500 ML 500 ML IV SCH ×2 (06:14→23:20)
--- NOTE | 2021-03-05 07:04 | Diagnostic Imaging Report ---
EXAMINATION: AP upright portable chest INDICATION: Hypoxia. COMPARISON: Multiple priors, most recent performed on 03/03/2021. FINDINGS: Low lung volumes are demonstrated. There is mild left basilar airspace disease. The lungs are otherwise clear and the pulmonary vasculature is normal. No pneumothorax or large pleural effusion. Heart size and mediastinal contours are normal and unchanged. No acute osseous abnormality is identified. IMPRESSION: There is mild left basilar airspace disease, likely reflecting atelectasis, pneumonia not excluded. Otherwise, no radiographic evidence of acute chest disease. Dictated by: Dictated on workstation # [id number]
--- NOTE | 2021-03-05 07:33 | Progress Note - Surgery ---
SHARI TAPIA 03/05/21 0733: Subjective Date Seen by a Provider: Mar 05, 2021 Time Seen by a Provider: 07:20 Subjective/Events-last exam Patient has a history of a TBI and was sleeping and unable to be aroused when visited today. There are no reports of emesis overnight, and patient had multiple loose bowels yesterday. Does still appear to have abdominal tenderness on exam today, with patient groaning and grabbing my hand upon palpation of stomach. Review of systems was not able to be obtained due to patient being unarousable. Focused Exam Lactate Level 03/04/21 17:07: Lactic Acid Level 4.65*H 03/04/21 19:17: Lactic Acid Level 4.47*H 03/05/21 04:15: Lactic Acid Level 3.51*H Lactic Acid Level Laboratory Tests Test 03/05/21 04:15 Lactic Acid Level 3.51 MMOL/L (0.50-2.00) *H Objective Exam Vital Signs Date Time Temp Pulse Resp B/P (MAP) Pulse Ox O2 Delivery O2 Flow Rate FiO2 03/05/21 06:59 High Flow N/C 2.00 03/05/21 06:58 High Flow N/C 2.00 03/05/21 06:54 98 High Flow N/C 3.00 03/05/21 06:00 125 25 145/86 99 High Flow N/C 3.00 03/05/21 05:00 122 22 124/49 99 High Flow N/C 3.00 03/05/21 04:00 36.5 High Flow N/C 6.00 03/05/21 04:00 98 High Flow N/C 6.00 03/05/21 04:00 116 20 116/80 100 High Flow N/C 6.00 03/05/21 03:00 121 19 112/83 100 Vapotherm 20.00 40.00 03/05/21 02:05 99 Vapotherm 15.00 35 03/05/21 02:00 126 15 102/64 98 Vapotherm 20.00 40.00 03/05/21 01:00 122 19 112/68 97 Vapotherm 20.00 40.00 03/05/21 01:00 122 03/05/21 00:00 37.4 03/05/21 00:00 124 20 109/64 97 Vapotherm 20.00 40.00 03/04/21 23:59 94 Vapotherm 20.00 40 03/04/21 23:00 129 25 114/70 97 Vapotherm 20.00 40.00 03/04/21 22:00 129 25 124/76 95 Vapotherm 20.00 40.00 03/04/21 21:00 130 26 127/75 93 Vapotherm 20.00 40.00 03/04/21 20:35 97 Vapotherm 20.00 40 03/04/21 20:00 133 30 134/70 96 Vapotherm 20.00 40.00 03/04/21 20:00 35.8 03/04/21 20:00 94 Vapotherm 20.00 40 03/04/21 19:00 133 27 111/76 91 Vapotherm 20.00 40.00 03/04/21 19:00 130 03/04/21 18:00 125 34 130/80 95 Vapotherm 20.00 40.00 03/04/21 17:00 26 129/78 98 Vapotherm 20.00 40.00 03/04/21 16:00 124 123/83 100 Vapotherm 20.00 40.00 03/04/21 16:00 96 Vapotherm 20.00 40 03/04/21 16:00 36.4 03/04/21 15:00 125 125/80 99 Vapotherm 20.00 40.00 03/04/21 14:36 98 Vapotherm 20.00 40 03/04/21 14:00 168 97 Vapotherm 20.00 40.00 03/04/21 13:00 123 03/04/21 13:00 124 30 125/81 99 Vapotherm 20.00 40.00 03/04/21 12:00 120 23 145/82 99 Vapotherm 20.00 40.00 03/04/21 12:00 96 Vapotherm 20.00 40 03/04/21 11:48 37.2 03/04/21 11:00 115 32 89/63 99 Vapotherm 20.00 40.00 03/04/21 10:48 98 Vapotherm 20.00 40 03/04/21 10:00 114 33 102/77 94 Vapotherm 20.00 40.00 03/04/21 09:00 122 22 118/66 83 Vapotherm 20.00 40.00 03/04/21 08:00 36.2 03/04/21 08:00 123 10 105/63 94 Vapotherm 20.00 40.00 03/04/21 08:00 96 Vapotherm 20.00 40 I & O 03/05/21 07:00 Intake Total 1000 ml Output Total 975 ml Balance 25 ml Capillary Refill : Less Than 3 Seconds General Appearance: No Apparent Distress, Obese HEENT: Pharynx Normal, Moist Mucous Membranes Neck: Normal Inspection, Supple; No Lymphadenopathy (L), No Lymphadenopathy (R), No Thyromegaly Respiratory: No Respiratory Distress, Decreased Breath Sounds (decreased breath sounds in LLL), Rhonci (minor rhonci present diffusely) Cardiovascular: No Murmur (Heart sounded very distant), Tachycardia Peripheral Pulses: 2+ Dorsalis Pedis (R), 2+ Left Dors-Pedis (L), 2+ Radial Pulses (R), 2+ Radial Pulses (L) Gastrointestinal: abnormal bowel sounds (bowels sounded hypoactive), distended (mildly distended), tenderness (Patient groaned and pulled at my hands while palpating lower quadrants of abdomen as though he was in pain.), other (firm across lower abdomen and appear to be in pain with deep palpation.) Extremity: Non Tender, Swelling (Patient has edema in legs bilaterally, but worse in right leg with pitting edema present.) Neurologic/Psychiatric: No Alert, No Oriented x3; Disoriented (Patient has history of TBI, and was also unable to be aroused this morning.) Skin: Normal Color, Warm/Dry Results Lab Laboratory Tests 03/04/21 08:00: Lactic Acid Level 3.37*H 03/04/21 09:52: Lactic Acid Level 2.86*H 03/04/21 10:30: Glucometer 202H 03/04/21 12:10: Lactic Acid Level 4.38*H 03/04/21 14:57: Lactic Acid Level 4.90*H 03/04/21 16:11: Blood Gas Puncture Site RIGHT RADIAL, Blood Gas Patient Temperature 36.4, Arterial Blood pH 7.41, Arterial Blood Partial Pressure CO2 38, Arterial Blood Partial Pressure O2 67L, Arterial Blood HCO3 24, Arterial Blood Total CO2 24.8, Arterial Blood Oxygen Saturation 94, Arterial Blood Base Excess -0.6, Test POSITIVE, Blood Gas Ventilator Setting NO, Blood Gas Inspired Oxygen 40% 03/04/21 16:15: Glucometer 150H 03/04/21 17:07: Lactic Acid Level 4.65*H 03/04/21 19:17: Lactic Acid Level 4.47*H 03/04/21 21:08: Glucometer 157H 03/05/21 04:15: Lactic Acid Level 3.51*H, White Blood Count 20.1H, Red Blood Count 5.11, Hemoglobin 15.9, Hematocrit 47, Mean Corpuscular Volume 92, Mean Corpuscular Hemoglobin 31, Mean Corpuscular Hemoglobin Concent 34, Red Cell Distribution Width 12.9, Platelet Count 128L, Mean Platelet Volume 9.6, Immature Granulocyte % (Auto) 2, Neutrophils (%) (Auto) 82H, Lymphocytes (%) (Auto) 6L, Monocytes (%) (Auto) 8, Eosinophils (%) (Auto) 2, Basophils (%) (Auto) 0, Neutrophils # (Auto) 16.5H, Lymphocytes # (Auto) 1.3, Monocytes # (Auto) 1.5H, Eosinophils # (Auto) 0.4H, Basophils # (Auto) 0.1, Immature Granulocyte # (Auto) 0.4H, Percent Immature Platelet Fraction 1.7, Sodium Level 141, Potassium Level 4.2, Chloride Level 106, Carbon Dioxide Level 21, Anion Gap 14, Blood Urea Nitrogen 33H, Creatinine 1.14, Estimat Glomerular Filtration Rate 64, BUN/Creatinine Ratio 29, Glucose Level 167H, Calcium Level 8.3L, Phosphorus Level 4.3, Magnesium Level 1.8 Microbiology 03/03/21 Blood Culture - Preliminary, Resulted No growth 03/03/21 Urine Culture - Final, Complete YEAST Assessment/Plan Assessment/Plan Assessment/Plan 1.) Fecal Impaction 2.) Urinary Retention 3.) Pneumonia w/ sepsis 4.) Leukocytosis 5.) Neutrophilia 6.) Lactic Acidosis Plan 1.) Patient had coffee ground emesis two nights ago, but hasn't had any since. Per CTA patient had large amount of stool present in rectal vault and sigmoid colon on 03/03/2021. Patient wasn't alert, but when palpating abdomen patient appeared to be in more discomfort than he was yesterday. Still possible he has a compaction present. Will continue to monitor for now and consider NG tube if patient begins vomiting, stops having BM's entirely, or pain appears to continue to be increasing. My be worth ordering Abdominal X ray or CTA today to look for compaction/obstruction. Has Senna, dolculax, Docusate, and Miralax prescribed. So far has only received the Senna and docusate, so addition of docusate and/ormiralax is still possible if patient needs help with BM. If condition acutely worsens then may need Exploratory Laparotomy. 2.) Patient has wood catheter in place, will leave there for now to prevent retention. 3, 4, & 5.) Continue IV antibiotics at this time and monitor 6.) Lactic Acid is trending down from yesterday, monitor for now. DANN ELIZABETH DO 03/05/21 1500: Subjective Time Seen by a Provider: 10:12 Subjective/Events-last exam Pt seen and examined, when I saw him he had just gotten back from CT. His room smelled because he just had multiple BMs. Does not appear to be in any distr ess. Review of Systems unable to obtain, pt not really answering questions Objective Exam General Appearance: No Apparent Distress, Obese HEENT: Moist Mucous Membranes Respiratory: Decreased Breath Sounds (decreased breath sounds in LLL), Rhonci (minor rhonci present diffusely) Cardiovascular: No Murmur (Heart sounded very distant), Tachycardia Gastrointestinal: soft, tenderness (Pain in LLQ minimal, better than this am and better than yesterday) Extremity: Non Tender, Swelling (Patient has edema in legs bilaterally, but worse in right leg with pitting edema present.) Neurologic/Psychiatric: Disoriented (Patient has history of TBI, and was also unable to be aroused this morning.) Skin: Normal Color, Warm/Dry Assessment/Plan Assessment/Plan Assessment/Plan 1.) Fecal Impaction -resolved, having multiple liquid stools and abd less distended 2.) Urinary Retention - wood in place 3.) Pneumonia w/ sepsis 4.) Leukocytosis 5.) Neutrophilia 6.) Lactic Acidosis Plan 1.) Pt looks about the same as yesterday, definitely not worse and I think his abdomen is softer. I reviewed the CT myself and discussed his care with Dr. Chi. He does still have some thickened colon and rectum, probably worse than the first CT and does have some signs of inflammation (stranding around colon) and scant free fluid in left paracolic gutter. However, no perforation or any signs of necrotic bowel. I will continue to follow along, no indications for surgical intervention at this time. 2.) Patient has wood catheter in place, will leave there for now to prevent retention. Lactic Acid is trending down from yesterday, monitor for now. Supervisory-Addendum Brief Verification & Attestation Participated in pt care: history, MDM, physical Personally performed: exam, history, MDM, supervision of care Care discussed with: Medical Student Procedures: n/a Verification and Attestation of Medical Student E/M Service A medical student performed and documented this service. I then reviewed and verified all information documented by the medical student and made modifications to such information, when appropriate. I personally performed a physical exam, medical decision making and then discussed any differences between the notes and made revisions as necessary to create one note. Dann Elizabeth , 03/05/21 , 15:05 SHARI TAPIA Mar 05, 2021 07:33 DANN ELIZABETH DO Mar 05, 2021 15:00
[2021-03-05] MEDS: SENNOSIDES 8.6 MG (SENOKOT) TAB PO SCH ×2 (08:26→20:43)
[2021-03-05] MEDS: DOCUSATE SODIUM 100 MG (COLACE) CAP PO SCH ×2 (08:26→20:43)
[2021-03-05] MEDS: PANTOPRAZOLE 40 MG (PROTONIX) VIAL IV SCH ×2 (08:26→20:42)
[2021-03-05] MEDS: LACTATED RINGERS 1,000 ML IV SCH ×2 (10:56→20:08)
--- NOTE | 2021-03-05 11:44 | Diagnostic Imaging Report ---
PROCEDURE: CT abdomen and pelvis without contrast. TECHNIQUE: Multiple contiguous axial images were obtained through the abdomen and pelvis without the use of intravenous contrast. Auto Exposure Controls were utilized during the CT exam to meet ALARA standards for radiation dose reduction. INDICATION: Abdominal pain, severe sepsis The recent CT chest, abdomen and pelvis exams of 03/03/2021 noted a large amount of stool in the rectum and sigmoid colon with fat stranding in the mesentery of the sigmoid colon. These findings were felt to be concerning for stercoral colitis. There is no mass or abscess identified. On this exam, those findings are again evident. There does seem to be somewhat greater thickening of the wall of the sigmoid colon and the descending colon noted on the prior study and this does suggest worsening colitis. There is still a considerable amount of fecal material present within the rectosigmoid portion of the colon. There is still no mass or abscess identified. A small amount of fluid has developed in the paracolic gutter on the left. This is nonspecific. The internal controls analyst film shows that the stomach is still distended by gas. There is also greater distention of the ascending and transverse colon by gas than noted on the prior exam. There is no evidence for a bowel obstruction however. Also, in the interval since the prior exam a Silver catheter has been inserted. There are a few droplets of gas within the bladder but the bladder is, for the most part, decompressed by the catheter. There is vicarious excretion of contrast by the gallbladder. The presence of the contrast within the gallbladder does reveal numerous gallstones are present. Even in retrospect, these could not be identified on the prior exam. There has been a slight increase in the atelectasis/infiltrate in the left lung base since the prior exam. Mild right lower lobe atelectasis/infiltrate is also now evident. The bone windows are unremarkable for a fracture or for a destructive lesion. IMPRESSION: 1. The appearance of the abdomen and pelvis has worsened somewhat since the prior exam as there does seem to be greater involvement of the rectosigmoid and descending colon by edema/inflammation. There is still no mass or abscess identified but the possibility of stercoral colitis should still be considered. 2. A small amount of free fluid has developed in the left paracolic gutter. This is nonspecific. 3. There is cholelithiasis without evidence for acute cholecystitis. 4. The bladder is now decompressed by a Silver catheter. 5. There has been a slight increase in the atelectasis/infiltrate involving both lung bases. Dictated by: Dictated on workstation # [id number]
--- NOTE | 2021-03-05 12:35 | Tele-ICU Progress Note ---
Subjective Date Seen by a Provider: Mar 04, 2021 Time Seen by a Provider: 13:03 Sepsis Event Evaluation Height, Weight, BMI Height: 5'7.00" Weight: 400lbs. 0.0oz. 181.112561tr; 31.00 BMI Method:Estimated Focused Exam Lactate Level 03/04/21 17:07: Lactic Acid Level 4.65*H 03/04/21 19:17: Lactic Acid Level 4.47*H 03/05/21 04:15: Lactic Acid Level 3.51*H Exam Exam Patient acknowledged, consented, and participated in this virtual visit which wa s conducted using real time audio/video Vital Signs Date Time Temp Pulse Resp B/P (MAP) Pulse Ox O2 Delivery O2 Flow Rate FiO2 03/05/21 11:36 36.5 03/05/21 11:00 122 28 135/78 100 High Flow N/C 2.00 03/05/21 10:54 100 High Flow N/C 2.00 03/05/21 10:00 124 29 142/79 96 High Flow N/C 2.00 03/05/21 09:00 122 15 128/82 97 High Flow N/C 2.00 03/05/21 08:00 123 16 121/67 100 High Flow N/C 2.00 03/05/21 08:00 96 High Flow N/C 2.00 03/05/21 07:54 37.8 03/05/21 07:00 126 19 127/69 97 High Flow N/C 2.00 03/05/21 07:00 123 03/05/21 06:59 High Flow N/C 2.00 03/05/21 06:58 High Flow N/C 2.00 03/05/21 06:54 98 High Flow N/C 3.00 03/05/21 06:00 125 25 145/86 99 High Flow N/C 3.00 03/05/21 05:00 122 22 124/49 99 High Flow N/C 3.00 03/05/21 04:00 36.5 High Flow N/C 6.00 03/05/21 04:00 98 High Flow N/C 6.00 03/05/21 04:00 116 20 116/80 100 High Flow N/C 6.00 03/05/21 03:00 121 19 112/83 100 Vapotherm 20.00 40.00 03/05/21 02:05 99 Vapotherm 15.00 35 03/05/21 02:00 126 15 102/64 98 Vapotherm 20.00 40.00 03/05/21 01:00 122 19 112/68 97 Vapotherm 20.00 40.00 03/05/21 01:00 122 03/05/21 00:00 37.4 03/05/21 00:00 124 20 109/64 97 Vapotherm 20.00 40.00 03/04/21 23:59 94 Vapotherm 20.00 40 03/04/21 23:00 129 25 114/70 97 Vapotherm 20.00 40.00 03/04/21 22:00 129 25 124/76 95 Vapotherm 20.00 40.00 03/04/21 21:00 130 26 127/75 93 Vapotherm 20.00 40.00 03/04/21 20:35 97 Vapotherm 20.00 40 03/04/21 20:00 133 30 134/70 96 Vapotherm 20.00 40.00 03/04/21 20:00 35.8 03/04/21 20:00 94 Vapotherm 20.00 40 03/04/21 19:00 133 27 111/76 91 Vapotherm 20.00 40.00 03/04/21 19:00 130 03/04/21 18:00 125 34 130/80 95 Vapotherm 20.00 40.00 03/04/21 17:00 26 129/78 98 Vapotherm 20.00 40.00 03/04/21 16:00 124 123/83 100 Vapotherm 20.00 40.00 03/04/21 16:00 96 Vapotherm 20.00 40 03/04/21 16:00 36.4 03/04/21 15:00 125 125/80 99 Vapotherm 20.00 40.00 03/04/21 14:36 98 Vapotherm 20.00 40 03/04/21 14:00 168 97 Vapotherm 20.00 40.00 03/04/21 13:00 123 03/04/21 13:00 124 30 125/81 99 Vapotherm 20.00 40.00 I & O 03/05/21 06:59 Intake Total 1000 ml Output Total 975 ml Balance 25 ml Height & Weight Height: 5'7.00" Weight: 400lbs. 0.0oz. [id number]; 31.00 BMI Method:Estimated General Appearance: No Apparent Distress, Obese HEENT: Pharynx Normal, Moist Mucous Membranes Neck: Normal Inspection, Supple; No Lymphadenopathy (L), No Lymphadenopathy (R), No Thyromegaly Respiratory: No Respiratory Distress, Decreased Breath Sounds (decreased breath sounds in LLL), Rhonci (minor rhonci present diffusely) Cardiovascular: No Murmur (Heart sounded very distant), Tachycardia Capillary Refill: Less Than 3 Seconds Peripheral Pulses: 2+ Dorsalis Pedis (R), 2+ Left Dors-Pedis (L), 2+ Radial Pulses (R), 2+ Radial Pulses (L) Gastrointestinal: abnormal bowel sounds (bowels sounded hypoactive), distended (mildly distended), tenderness (Patient groaned and pulled at my hands while palpating lower quadrants of abdomen as though he was in pain.), other (firm across lower abdomen and appear to be in pain with deep palpation.) Extremity: Non Tender, Swelling (Patient has edema in legs bilaterally, but worse in right leg with pitting edema present.) Neurologic/Psychiatric: No Alert, No Oriented x3; Disoriented (Patient has history of TBI, and was also unable to be aroused this morning.) Skin: Normal Color, Warm/Dry Results Lab Laboratory Tests 03/03/21 22:10 03/04/21 03:10 03/05/21 04:15 Assessment/Plan Assessment/Plan (Tele-ICU Physician , Progress Note ) Available chart/ vitals / labs / Images reviewed Video assessment done using teleICU camera, rest of exam as per RN Discussed with RN , EXAM PER RN Events overnight : Afebrile FiO2 - I/O = Drips: LR Pressors: , hemodynamically stable Consultants: Hospital course: A/P coffee ground emesis - HB stable -PPI - Sx consulted abdominal distension with elev lactate - ? ischemia -CT abd reviewed - Sx consulted - empiric abx Suspected PNA = CT chesat 03/03 - minimal infiltrates - abx started - follow , monitor for aspitration Hypoxia - follow cxr - covid pending cxr TBI Lines : (Central Line Necessity Reviewed) Silver: OG: Nutrition: Analgesia: Anxiety/ delirium VTE Prophylaxis: deb 40 Stress Ulcer Prophylaxis: = KOLTON LAI MD Mar 05, 2021 12:35
--- NOTE | 2021-03-05 13:24 | Diagnostic Imaging Report ---
PROCEDURE: CT head without contrast. TECHNIQUE: Multiple contiguous axial images were obtained through the brain without the use of intravenous contrast. Auto Exposure Controls were utilized during the CT exam to meet ALARA standards for radiation dose reduction. INDICATION: Left facial twitching. Right-sided facial droop. COMPARISON: CT head without contrast 06/14/2018. FINDINGS: Advanced generalized parenchymal volume loss. No CT evidence of an acute territorial infarction. No intracranial hemorrhage, mass effect, hydrocephalus or extra-axial fluid collections. Paranasal sinuses and mastoids are clear. Osseous structures are intact. IMPRESSION: No acute intracranial CT findings. Dictated by: Dictated on workstation # [id number]
--- NOTE | 2021-03-05 16:25 | Progress Note - Hospitalist ---
Subjective HPI/CC On Admission Date Seen by Provider: Mar 05, 2021 Time Seen by Provider: 09:45 Jose Saini is a 70 year old male with PMH cognitive impairment due to history of TBI, CHF, COPD, KAYLEY on CPAP, obesity, who presented with shortness of breath. He is a poor historian due to his TBI. He is able to tell me that he is not in pain. He also denies shortness of breath. He does not voice any complaints. Upon examination in the ER, he was found to have pneumonia as well as coliitis with a large stool burden. Subjective/Events-last exam He says "No, no, no" when I try to examine his abdomen. He does not provide any other information. Focused Exam Lactate Level 03/04/21 17:07: Lactic Acid Level 4.65*H 03/04/21 19:17: Lactic Acid Level 4.47*H 03/05/21 04:15: Lactic Acid Level 3.51*H Objective Exam Vital Signs Vital Signs Date Time Temp Pulse Resp B/P (MAP) Pulse Ox O2 Delivery O2 Flow Rate FiO2 03/05/21 16:00 126 28 90/74 97 High Flow N/C 2.00 03/05/21 11:36 36.5 03/05/21 02:05 35 Capillary Refill : Less Than 3 Seconds General Appearance: No Apparent Distress, Chronically ill, Obese Neck: Normal Inspection, Supple Respiratory: Lungs Clear, Normal Breath Sounds, No Respiratory Distress Cardiovascular: No Murmur, Tachycardia Gastrointestinal: Soft, Abnormal Bowel Sounds (hypoactive), Distended, Tenderness (diffusely) Extremity: Normal Inspection, Non Tender, No Pedal Edema Neurologic/Psychiatric: Alert, Disoriented, Other (uncooperative) Skin: Normal Color, Warm/Dry Results/Procedures Lab Laboratory Tests 03/05/21 04:15 Patient resulted labs reviewed. Imaging: Reviewed Imaging Report Assessment/Plan Assessment and Plan Assess & Plan/Chief Complaint Septic shock Pneumonia Colitis Lactic acidosis Obstipation Possible GI bleeding Possible ischemic colitis CT consistent with pneumonia Lactic acid >4, persistently elevated despite fluid resuscitation Continue Cefepime Concern for possible ischemic bowel Repeat CT Abdomen Surgery following IV fluids Protonix TBI COPD CHF Obesity DVT prophylaxis: Lovenox Critical Care Critically Ill Patient Diagnosis/Problems Diagnosis/Problems (1) Septic shock Status: Acute (2) Pneumonia Status: Acute (3) Lactic acidosis Status: Acute (4) Stercoral colitis Status: Acute (5) Morbid obesity Status: Chronic (6) TBI (traumatic brain injury) Status: Chronic TERRI PURDY MD Mar 05, 2021 16:25
[2021-03-05 18:29] VITALS: BP 131/73
[2021-03-06] MEDS: CEFEPIME INJECTION 1,000 MG in NS (IVPB) 50 ML IV SCH ×4 (00:42→18:15)
[2021-03-06] MEDS: RT-ALBUTEROL HFA 8.5 GM INHALER IH SCH ×5 (01:43→18:46)
[2021-03-06 04:30] LABS: BASOPHILS # (AUTO) 0.1 10^3/uL (0.0-0.1); BASOPHILS % (AUTO) 1 % (0-10); EOSINOPHILS # (AUTO) 0.3 10^3/uL (0.0-0.3); EOSINOPHILS % (AUTO) 2 % (0-10); HEMATOCRIT 42 % (40-54); HEMOGLOBIN 14.2 g/dL (13.3-17.7); LYMPHOCYTES # (AUTO) 1.2 10^3/uL (1.0-4.0); LYMPHOCYTES % (AUTO) 7 % (12-44); MEAN CORPUSCULAR HEMOGLOBIN 31 pg (25-34); MEAN CORPUSCULAR HGB CONC 34 g/dL (32-36); MEAN CORPUSCULAR VOLUME 91 fL (80-99); MEAN PLATELET VOLUME 9.9 fL (9.0-12.2); MONOCYTES % (AUTO) 6 % (0-12); NEUTROPHILS % (AUTO) 84 % (42-75); PLATELET COUNT 114 10^3/uL (130-400); WHITE BLOOD COUNT 16.6 10^3/uL (4.3-11.0)
[2021-03-06] MEDS: LACTATED RINGERS 1,000 ML IV SCH ×3 (04:37→23:26)
[2021-03-06 04:42] LABS: INR 1.3 (0.8-1.4); PROTHROMBIN TIME PATIENT 16.3 SEC (12.2-14.7)
[2021-03-06 04:43] LABS: POTASSIUM 3.6 MMOL/L (3.6-5.0)
[2021-03-06 04:44] LABS: CALCIUM 8.3 MG/DL (8.5-10.1)
[2021-03-06 04:48] LABS: PHOSPHORUS 1.7 MG/DL (2.3-4.7)
[2021-03-06 04:49] LABS: CREATININE SERUM 0.74 MG/DL (0.60-1.30)
[2021-03-06 04:51] LABS: MAGNESIUM 1.7 MG/DL (1.6-2.4)
[2021-03-06] MEDS: POTASSIUM CL 10MEQ/50ML IVPB 50 ML IV SCH ×3 (05:01→06:25)
[2021-03-06] MEDS: MAGNESIUM 1 GM/100 ML IVPB 100 ML IV SCH ×3 (05:01→06:25)
[2021-03-06] MEDS: inSUlin ASPART (NovoLOG) 1 UNIT/0.01 ML (CHARGE PER UNIT) SC SCH ×4 (05:02→21:20)
[2021-03-06] MEDS: KCL 20 MEQ TAB (K-DUR) PO SCH (05:02)
--- NOTE | 2021-03-06 08:44 | Progress Note - Surgery ---
SHARI TAPIA 03/06/21 0844: Subjective Date Seen by a Provider: Mar 06, 2021 Time Seen by a Provider: 07:30 Subjective/Events-last exam Jose Saini is a 70 year old male with a history of TBI w/ altered cognitive status. We are following for concerns about coffee ground emesis several eveni ngs ago and possibility of stool compaction. He had an abdominal CT performed yesterday that afternoon that showed stool build up in colon that appeared to have worsened since last CTA, but had 2 bowel movements yesterday, and 2 overnight. He does report having some pain with palpation of his stomach today. Was able to say no when asked if he had any shortness of breath. Was not able to get him to answer any more questions for a review of systems. Review of Systems Pulmonary: No Dyspnea Focused Exam Lactate Level 03/04/21 19:17: Lactic Acid Level 4.47*H 03/05/21 04:15: Lactic Acid Level 3.51*H 03/06/21 03:59: Lactic Acid Level 1.43 Objective Exam Vital Signs Date Time Temp Pulse Resp B/P (MAP) Pulse Ox O2 Delivery O2 Flow Rate FiO2 03/06/21 08:15 Room Air 03/06/21 08:00 112 27 164/88 96 High Flow N/C 1.00 03/06/21 07:19 95 Room Air 03/06/21 07:00 113 27 162/83 93 High Flow N/C 1.00 03/06/21 07:00 115 03/06/21 06:00 112 28 163/78 94 High Flow N/C 1.00 03/06/21 05:00 115 28 147/87 94 High Flow N/C 1.00 03/06/21 04:26 High Flow N/C 1.00 03/06/21 04:00 95 Room Air 03/06/21 04:00 120 30 142/66 93 Room Air 03/06/21 03:35 37.0 03/06/21 03:00 121 27 140/71 93 Room Air 03/06/21 02:00 115 28 159/77 91 Room Air 03/06/21 01:43 91 Room Air 03/06/21 01:00 124 03/06/21 01:00 123 31 119/69 91 Room Air 03/06/21 00:45 Room Air 03/06/21 00:13 36.8 03/06/21 00:00 96 High Flow N/C 1.00 03/06/21 00:00 113 28 160/81 97 High Flow N/C 1.00 03/05/21 23:00 116 27 157/88 96 High Flow N/C 1.00 03/05/21 22:27 36.5 03/05/21 22:09 96 High Flow N/C 1.00 03/05/21 22:00 120 29 141/72 93 High Flow N/C 1.00 03/05/21 21:00 122 30 151/71 95 High Flow N/C 1.00 03/05/21 20:11 High Flow N/C 1.00 03/05/21 20:00 124 28 144/70 95 High Flow N/C 1.00 03/05/21 20:00 96 High Flow N/C 2.00 03/05/21 19:45 36.8 03/05/21 19:00 122 29 139/57 96 High Flow N/C 2.00 03/05/21 19:00 122 03/05/21 18:29 96 High Flow N/C 2.00 03/05/21 18:29 36.5 122 96 28 03/05/21 18:00 121 31 131/73 96 High Flow N/C 2.00 03/05/21 17:00 124 30 160/73 99 High Flow N/C 2.00 03/05/21 16:00 126 28 90/74 97 High Flow N/C 2.00 03/05/21 16:00 36.5 03/05/21 15:40 100 High Flow N/C 2.00 03/05/21 15:00 124 31 153/89 97 High Flow N/C 2.00 03/05/21 14:13 97 High Flow N/C 2.00 03/05/21 14:00 124 29 141/69 97 High Flow N/C 2.00 03/05/21 13:00 128 29 150/80 99 High Flow N/C 2.00 03/05/21 12:36 126 03/05/21 12:00 122 28 135/69 100 High Flow N/C 2.00 03/05/21 12:00 100 High Flow N/C 2.00 03/05/21 11:36 36.5 03/05/21 11:00 122 28 135/78 100 High Flow N/C 2.00 03/05/21 10:54 100 High Flow N/C 2.00 03/05/21 10:00 124 29 142/79 96 High Flow N/C 2.00 03/05/21 09:00 122 15 128/82 97 High Flow N/C 2.00 I & O 03/06/21 07:00 Intake Total 3200 ml Output Total 1400 ml Balance 1800 ml Capillary Refill : Less Than 3 Seconds General Appearance: No Apparent Distress, Chronically ill, Obese HEENT: Moist Mucous Membranes Neck: Normal Inspection, Supple; No Lymphadenopathy (L), No Lymphadenopathy (R), No Thyromegaly Respiratory: Lungs Clear, Normal Breath Sounds, No Respiratory Distress Cardiovascular: No Murmur (heart sounds distant), Tachycardia Peripheral Pulses: 2+ Dorsalis Pedis (R), 2+ Left Dors-Pedis (L), 2+ Radial Pulses (R), 2+ Radial Pulses (L) Gastrointestinal: soft, abnormal bowel sounds (slightly hypoactive), tenderness (When asked if his abdomen hurt during palpation he shook his head yes, but said no. Appeared to be in discomfort, but less so than yesterday. Worst in LLQ.), other (wood catheter in place) Extremity: Normal Inspection, Non Tender, Pedal Edema, Swelling (Mild swelling in left leg, pitting edema in right.) Neurologic/Psychiatric: Alert, Disoriented, Other (constantly falling back asleep during exam) Skin: Normal Color, Warm/Dry Results Lab Laboratory Tests 03/05/21 10:45: Glucometer 140H 03/05/21 16:19: Glucometer 149H 03/05/21 20:19: Glucometer 131H 03/06/21 03:59: White Blood Count 16.6H, Red Blood Count 4.63, Hemoglobin 14.2, Hematocrit 42, Mean Corpuscular Volume 91, Mean Corpuscular Hemoglobin 31, Mean Corpuscular Hemoglobin Concent 34, Red Cell Distribution Width 13.0, Platelet Count 114L, Mean Platelet Volume 9.9, Immature Granulocyte % (Auto) 0, Neutrophils (%) (Auto) 84H, Lymphocytes (%) (Auto) 7L, Monocytes (%) (Auto) 6, Eosinophils (%) (Auto) 2, Basophils (%) (Auto) 1, Neutrophils # (Auto) 14.0H, Lymphocytes # (Auto) 1.2, Monocytes # (Auto) 1.0, Eosinophils # (Auto) 0.3, Basophils # (Auto) 0.1, Immature Granulocyte # (Auto) 0.1, Prothrombin Time 16.3H, INR Comment 1.3, Sodium Level 142, Potassium Level 3.6, Chloride Level 109H, Carbon Dioxide Level 24, Anion Gap 9, Blood Urea Nitrogen 24H, Creatinine 0.74, Estimat Glomerular Filtration Rate 105, BUN/Creatinine Ratio 32, Glucose Level 152H, Lactic Acid Level 1.43, Calcium Level 8.3L, Phosphorus Level 1.7L, Magnesium Level 1.7, Procalcitonin 3.27H Microbiology 03/03/21 Blood Culture - Preliminary, Resulted No growth 03/03/21 MRSA Screen - Final, Complete MRSA not isolated 03/03/21 Urine Culture - Final, Complete YEAST Assessment/Plan Assessment/Plan Assessment/Plan 1.) Fecal Impaction -resolved, having multiple liquid stools and abd less distended 2.) Urinary Retention - wood in place 3.) Pneumonia w/ sepsis 4.) Leukocytosis 5.) Neutrophilia 6.) Lactic Acidosis Plan 1.) Patient still appears to have pain in abdomen, but has had frequent Bowel m ovements and pain appears to be improved since yesterday. He had 2 BM's yesterday during the day and 2 last night. Seems likely it has resolved. Not concerned for impaction or obstruction at this time. no indications for surgery at this time. 2.) Keep wood catheter in place. CT yesterday showed the wood is allowing the bladder to drain well. 3, 4, 5.) continue Cefepime antibiotics. WBC's and neutrophils are trending down. continue to monitor. 6.) Lactic acid today was 1.43, improved from 3.51 yesterday. will continue to follow. DANN ELIZABETH DO 03/06/21 1521: Subjective Time Seen by a Provider: 09:22 Subjective/Events-last exam Pt seen and examined, no new changes. Nurse states he has had 2 BMs and abdomen is softer. When asked pt denies abdominal pain, but as he is saying no is shaking his head yes. Review of Systems Pulmonary: No Dyspnea Gastrointestinal: No: Nausea, Vomiting Objective Exam General Appearance: No Apparent Distress, Chronically ill, Obese HEENT: Moist Mucous Membranes Respiratory: Lungs Clear, Normal Breath Sounds, No Respiratory Distress Gastrointestinal: soft, abnormal bowel sounds (slightly hypoactive), tenderness (When asked if his abdomen hurt during palpation he shook his head yes, but said no. Appeared to be in discomfort, but less so than yesterday. Worst in LLQ.), other (wood catheter in place) Assessment/Plan Assessment/Plan Assessment/Plan 1.) Fecal Impaction -resolved, having multiple liquid stools and abd less distended 2.) Urinary Retention - wood in place 3.) Pneumonia w/ sepsis 4.) Leukocytosis 5.) Neutrophilia 6.) Lactic Acidosis Plan 1.) Patient still appears to have pain in abdomen, but has had frequent Bowel movements and pain appears to be improved since yesterday. He had 2 BM's y ester during the day and 2 last night. Seems likely it has resolved. Not concerned for impaction or obstruction at this time. no indications for surgery at this time. 2.) Keep wood catheter in place. CT yesterday showed the wood is allowing the bladder to drain well. 3, 4, 5.) continue Cefepime antibiotics. WBC's and neutrophils are trending down. continue to monitor. 6.) Lactic acid today was 1.43, improved from 3.51 yesterday. will continue to follow. Supervisory-Addendum Brief Verification & Attestation Participated in pt care: history, MDM, physical Personally performed: exam, history, MDM, supervision of care Care discussed with: Medical Student Procedures: n/a Verification and Attestation of Medical Student E/M Service A medical student performed and documented this service. I then reviewed and verified all information documented by the medical student and made modifications to such information, when appropriate. I personally performed a physical exam, medical decision making and then discussed any differences between the notes and made revisions as necessary to create one note. Dann Elizabeth , 03/06/21 , 15:21 SHARI TAPIA Mar 06, 2021 08:44 DANN ELIZABETH DO Mar 06, 2021 15:21
[2021-03-06] MEDS: DOCUSATE SODIUM 100 MG (COLACE) CAP PO SCH ×2 (08:46→19:58)
[2021-03-06] MEDS: SENNOSIDES 8.6 MG (SENOKOT) TAB PO SCH ×2 (08:46→19:59)
[2021-03-06] MEDS: polyethylene glycoL POWDER 17 GM (MIRALAX) PACK PO SCH ×2 (08:47→19:59)
[2021-03-06] MEDS: PANTOPRAZOLE 40 MG (PROTONIX) VIAL IV SCH ×2 (08:47→21:19)
--- NOTE | 2021-03-06 11:11 | Tele-ICU Progress Note ---
Subjective Date Seen by a Provider: Mar 06, 2021 Time Seen by a Provider: 11:10 Sepsis Event Evaluation Height, Weight, BMI Height: 5'7.00" Weight: 400lbs. 0.0oz. 181.050548kc; 31.00 BMI Method:Estimated Focused Exam Lactate Level 03/04/21 19:17: Lactic Acid Level 4.47*H 03/05/21 04:15: Lactic Acid Level 3.51*H 03/06/21 03:59: Lactic Acid Level 1.43 Exam Exam Patient acknowledged, consented, and participated in this virtual visit which was conducted using real time audio/video Vital Signs Date Time Temp Pulse Resp B/P (MAP) Pulse Ox O2 Delivery O2 Flow Rate FiO2 03/06/21 10:11 95 Room Air 03/06/21 10:00 108 28 150/88 95 Room Air 03/06/21 08:51 36.9 03/06/21 08:15 Room Air 03/06/21 08:00 112 27 164/88 96 High Flow N/C 1.00 03/06/21 08:00 97 Room Air 03/06/21 07:19 95 Room Air 03/06/21 07:00 113 27 162/83 93 High Flow N/C 1.00 03/06/21 07:00 115 03/06/21 06:00 112 28 163/78 94 High Flow N/C 1.00 03/06/21 05:00 115 28 147/87 94 High Flow N/C 1.00 03/06/21 04:26 High Flow N/C 1.00 03/06/21 04:00 95 Room Air 03/06/21 04:00 120 30 142/66 93 Room Air 03/06/21 03:35 37.0 03/06/21 03:00 121 27 140/71 93 Room Air 03/06/21 02:00 115 28 159/77 91 Room Air 03/06/21 01:43 91 Room Air 03/06/21 01:00 124 03/06/21 01:00 123 31 119/69 91 Room Air 03/06/21 00:45 Room Air 03/06/21 00:13 36.8 03/06/21 00:00 96 High Flow N/C 1.00 03/06/21 00:00 113 28 160/81 97 High Flow N/C 1.00 03/05/21 23:00 116 27 157/88 96 High Flow N/C 1.00 03/05/21 22:27 36.5 03/05/21 22:09 96 High Flow N/C 1.00 03/05/21 22:00 120 29 141/72 93 High Flow N/C 1.00 03/05/21 21:00 122 30 151/71 95 High Flow N/C 1.00 03/05/21 20:11 High Flow N/C 1.00 03/05/21 20:00 124 28 144/70 95 High Flow N/C 1.00 03/05/21 20:00 96 High Flow N/C 2.00 03/05/21 19:45 36.8 03/05/21 19:00 122 29 139/57 96 High Flow N/C 2.00 03/05/21 19:00 122 03/05/21 18:29 96 High Flow N/C 2.00 03/05/21 18:29 36.5 122 96 28 03/05/21 18:00 121 31 131/73 96 High Flow N/C 2.00 03/05/21 17:00 124 30 160/73 99 High Flow N/C 2.00 03/05/21 16:00 126 28 90/74 97 High Flow N/C 2.00 03/05/21 16:00 36.5 03/05/21 15:40 100 High Flow N/C 2.00 03/05/21 15:00 124 31 153/89 97 High Flow N/C 2.00 03/05/21 14:13 97 High Flow N/C 2.00 03/05/21 14:00 124 29 141/69 97 High Flow N/C 2.00 03/05/21 13:00 128 29 150/80 99 High Flow N/C 2.00 03/05/21 12:36 126 03/05/21 12:00 122 28 135/69 100 High Flow N/C 2.00 03/05/21 12:00 100 High Flow N/C 2.00 03/05/21 11:36 36.5 I & O 03/06/21 07:00 Intake Total 3200 ml Output Total 1400 ml Balance 1800 ml Height & Weight Height: 5'7.00" Weight: 400lbs. 0.0oz. [id number]; 31.00 BMI Method:Estimated General Appearance: No Apparent Distress, Chronically ill, Obese HEENT: Moist Mucous Membranes Neck: Normal Inspection, Supple; No Lymphadenopathy (L), No Lymphadenopathy (R), No Thyromegaly Respiratory: Lungs Clear, Normal Breath Sounds, No Respiratory Distress Cardiovascular: No Murmur (heart sounds distant), Tachycardia Capillary Refill: Less Than 3 Seconds Peripheral Pulses: 2+ Dorsalis Pedis (R), 2+ Left Dors-Pedis (L), 2+ Radial Pulses (R), 2+ Radial Pulses (L) Gastrointestinal: soft, abnormal bowel sounds (slightly hypoactive), tenderness (When asked if his abdomen hurt during palpation he shook his head yes, but said no. Appeared to be in discomfort, but less so than yesterday. Worst in LLQ.), other (wood catheter in place) Extremity: Normal Inspection, Non Tender, Pedal Edema, Swelling (Mild swelling in left leg, pitting edema in right.) Neurologic/Psychiatric: Alert, Disoriented, Other (constantly falling back asleep during exam) Skin: Normal Color, Warm/Dry Results Lab Laboratory Tests 03/05/21 04:15 03/06/21 03:59 Assessment/Plan Assessment/Plan (Tele-ICU Physician , Progress Note ) Available chart/ vitals / labs / Images reviewed Video assessment done using teleICU camera, rest of exam as per RN Discussed with RN , EXAM PER RN Events overnight : Afebrile FiO2 -ra I/O = pos Drips: LR Pressors: , hemodynamically stable Consultants: sx A/P coffee ground emesis - HB stable -PPI - Sx consulted abdominal distension with elev lactate - ? ischemia- lactate improving -CT abd reviewed - Sx consulted - follow - empiric abx Suspected PNA = CT chesat 03/03 - minimal infiltrates - abx started - follow , monitor for aspitration Hypoxia - follow cxr - covid pending TBI Lines : (Central Line Necessity Reviewed) Wood: OG: Nutrition: NPO - as per sx Analgesia: Anxiety/ delirium VTE Prophylaxis: deb 40 when ok with SX , SCD now Stress Ulcer Prophylaxis: = Plans in collaboration with bedside consultants and IM MDs. Discussed with RN to reach out if any questions or concerns A total of 31 minutes of critical care time was devoted to this patient today, required to treat and/or prevent further deterioration of critical care condition ( as above) KOLTON LAI MD Mar 06, 2021 11:11
--- NOTE | 2021-03-06 12:42 | Progress Note - Hospitalist ---
Subjective HPI/CC On Admission Date Seen by Provider: Mar 06, 2021 Time Seen by Provider: 09:45 Jose Saini is a 70 year old male with PMH cognitive impairment due to history of TBI, CHF, COPD, KAYLEY on CPAP, obesity, who presented with shortness of breath. He is a poor historian due to his TBI. He is able to tell me that he is not in pain. He also denies shortness of breath. He does not voice any complaints. Upon examination in the ER, he was found to have pneumonia as well as coliitis with a large stool burden. Subjective/Events-last exam He is awake and conversing. He denies pain. He has no complaints. Focused Exam Lactate Level 03/04/21 19:17: Lactic Acid Level 4.47*H 03/05/21 04:15: Lactic Acid Level 3.51*H 03/06/21 03:59: Lactic Acid Level 1.43 Objective Exam Vital Signs Vital Signs Date Time Temp Pulse Resp B/P (MAP) Pulse Ox O2 Delivery O2 Flow Rate FiO2 03/06/21 12:05 94 Room Air 03/06/21 12:00 109 31 152/80 03/06/21 08:51 36.9 03/06/21 08:00 1.00 03/05/21 18:29 28 Capillary Refill : Less Than 3 Seconds General Appearance: No Apparent Distress, Chronically ill, Obese Respiratory: Lungs Clear, Normal Breath Sounds, No Respiratory Distress Cardiovascular: Regular Rate, Rhythm, No Murmur Gastrointestinal: Non Tender, Soft, Abnormal Bowel Sounds (hypoactive) Extremity: Normal Inspection, Pedal Edema Neurologic/Psychiatric: Alert, Normal Mood/Affect Skin: Normal Color, Warm/Dry Results/Procedures Lab Laboratory Tests 03/06/21 03:59 Patient resulted labs reviewed. Imaging: Reviewed Imaging Report Assessment/Plan Assessment and Plan Assess & Plan/Chief Complaint Pneumonia Continue Cefepime Colitis Surgery following Bowel regimen IV fluids Protonix TBI COPD CHF Obesity DVT prophylaxis: Lovenox Septic shock, resolved Lactic acidosis, resolved Obstipation, resolved Diagnosis/Problems Diagnosis/Problems (1) Septic shock Status: Resolved Resolution Date/Time: 03/06/21 @ 12:42 (2) Pneumonia Status: Acute (3) Lactic acidosis Status: Resolved Resolution Date/Time: 03/06/21 @ 12:42 (4) Stercoral colitis Status: Acute (5) Morbid obesity Status: Chronic (6) TBI (traumatic brain injury) Status: Chronic TERRI PURDY MD Mar 06, 2021 12:42
[2021-03-06] MEDS: TAMSULOSIN 0.4 MG (FLOMAX) CAP PO SCH (13:18)
[2021-03-06] MEDS: GABAPENTIN 300 MG (NEURONTIN) CAP PO SCH ×2 (13:18→21:19)
[2021-03-06 14:00] VITALS: BP 139/69
[2021-03-06 15:29] VITALS: BP 179/81
[2021-03-06] MEDS: BETHANECHOL 25 MG (URECHOLINE) TAB PO SCH (16:57)
[2021-03-06 19:17] VITALS: BP 138/70
[2021-03-06] MEDS: DIVALPROEX EXT RELEASE 500 MG (DEPAKOTE ER) TAB PO SCH (21:19)
[2021-03-06] MEDS: TIMOLOL MALEATE 0.5% 5 ML (TIMOPTIC) BTL OU SCH (21:23)
[2021-03-06 22:27] VITALS: BP 138/70
[2021-03-06 23:26] VITALS: BP 130/63
[2021-03-07] MEDS: CEFEPIME INJECTION 1,000 MG in NS (IVPB) 50 ML IV SCH ×4 (02:13→19:58)
[2021-03-07] MEDS: TAMSULOSIN 0.4 MG (FLOMAX) CAP PO SCH ×2 (02:14→12:13)
[2021-03-07 04:12] VITALS: BP 138/65
[2021-03-07] MEDS: LACTATED RINGERS 1,000 ML IV SCH (06:07)
[2021-03-07] MEDS: BETHANECHOL 25 MG (URECHOLINE) TAB PO SCH ×3 (06:08→17:27)
[2021-03-07] MEDS: inSUlin ASPART (NovoLOG) 1 UNIT/0.01 ML (CHARGE PER UNIT) SC SCH ×4 (06:15→20:57)
[2021-03-07 06:50] LABS: POTASSIUM 3.4 MMOL/L (3.6-5.0)
[2021-03-07 06:55] LABS: CREATININE SERUM 0.68 MG/DL (0.60-1.30)
[2021-03-07] MEDS: KCL 20 MEQ TAB (K-DUR) PO SCH (06:55)
[2021-03-07] MEDS: POTASSIUM CL 10MEQ/50ML IVPB 50 ML IV SCH ×3 (06:55→08:10)
[2021-03-07 06:58] LABS: MAGNESIUM 1.6 MG/DL (1.6-2.4)
[2021-03-07] MEDS: MAGNESIUM 1 GM/100 ML IVPB 100 ML IV SCH ×3 (06:59→09:53)
[2021-03-07] MEDS: RT-ALBUTEROL HFA 8.5 GM INHALER IH SCH ×4 (07:12→20:30)
[2021-03-07 07:37] LABS: EOSINOPHILS % (AUTO) 0 % (0-10); HEMOGLOBIN 12.7 g/dL (13.3-17.7)
[2021-03-07 07:39] LABS: BASOPHILS # (AUTO) 0.1 10^3/uL (0.0-0.1); BASOPHILS % (AUTO) 1 % (0-10); HEMATOCRIT 38 % (40-54); LYMPHOCYTES # (AUTO) 1.3 10^3/uL (1.0-4.0); LYMPHOCYTES % (AUTO) 12 % (12-44); MEAN CORPUSCULAR HEMOGLOBIN 31 pg (25-34); MEAN CORPUSCULAR HGB CONC 34 g/dL (32-36); MEAN CORPUSCULAR VOLUME 92 fL (80-99); MEAN PLATELET VOLUME 10.5 fL (9.0-12.2); MONOCYTES # (AUTO) 0.8 10^3/uL (0.0-1.0); MONOCYTES % (AUTO) 8 % (0-12); NEUTROPHILS # (AUTO) 8.6 10^3/uL (1.8-7.8); NEUTROPHILS % (AUTO) 79 % (42-75); PLATELET COUNT 123 10^3/uL (130-400); WHITE BLOOD COUNT 10.9 10^3/uL (4.3-11.0)
[2021-03-07 08:00] VITALS: BP 147/82
[2021-03-07] MEDS: ASPIRIN E.C. 81 MG (ECOTRIN) TAB PO SCH (09:53)
[2021-03-07] MEDS: guaiFENesin (MUCINEX) 600 MG TAB PO SCH (09:53)
[2021-03-07] MEDS: DOCUSATE SODIUM 100 MG (COLACE) CAP PO SCH ×2 (09:53→19:58)
[2021-03-07] MEDS: PANTOPRAZOLE 40 MG (PROTONIX) VIAL IV SCH (09:53)
[2021-03-07] MEDS: GABAPENTIN 300 MG (NEURONTIN) CAP PO SCH ×3 (09:53→19:59)
[2021-03-07] MEDS: LORATADINE (CLARITIN) 10 MG TAB PO SCH (09:53)
[2021-03-07] MEDS: VENlafaxine XR 75 MG (EFFEXOR XR) CAP PO SCH (09:54)
[2021-03-07] MEDS: polyethylene glycoL POWDER 17 GM (MIRALAX) PACK PO SCH ×2 (09:55→19:14)
[2021-03-07] MEDS: SENNOSIDES 8.6 MG (SENOKOT) TAB PO SCH ×3 (09:56→19:58)
[2021-03-07] MEDS: TIMOLOL MALEATE 0.5% 5 ML (TIMOPTIC) BTL OU SCH ×2 (12:13→19:59)
[2021-03-07 16:13] VITALS: BP 164/81
--- NOTE | 2021-03-07 17:16 | Progress Note - Hospitalist ---
Subjective HPI/CC On Admission Date Seen by Provider: Mar 07, 2021 Time Seen by Provider: 11:05 Jose Siani is a 70 year old male with PMH cognitive impairment due to history of TBI, CHF, COPD, KAYLEY on CPAP, obesity, who presented with shortness of breath. He is a poor historian due to his TBI. He is able to tell me that he is not in pain. He also denies shortness of breath. He does not voice any complaints. Upon examination in the ER, he was found to have pneumonia as well as coliitis with a large stool burden. Subjective/Events-last exam He is doing better. He is awake and talking. He denies pain. Focused Exam Lactate Level 03/04/21 19:17: Lactic Acid Level 4.47*H 03/05/21 04:15: Lactic Acid Level 3.51*H 03/06/21 03:59: Lactic Acid Level 1.43 Objective Exam Vital Signs Vital Signs Date Time Temp Pulse Resp B/P (MAP) Pulse Ox O2 Delivery O2 Flow Rate FiO2 03/07/21 16:13 35.3 101 20 164/81 (108) 95 Nasal Cannula 3.00 03/05/21 18:29 28 Capillary Refill : Less Than 3 Seconds General Appearance: No Apparent Distress, Chronically ill, Obese Respiratory: Lungs Clear, No Respiratory Distress Cardiovascular: Regular Rate, Rhythm, No Murmur Gastrointestinal: Normal Bowel Sounds, Soft, Distended Extremity: Normal Inspection, Pedal Edema Neurologic/Psychiatric: Alert, Normal Mood/Affect Skin: Normal Color, Warm/Dry Results/Procedures Lab Laboratory Tests 03/07/21 06:07 03/07/21 06:09 Patient resulted labs reviewed. Imaging: Reviewed Imaging Report Assessment/Plan Assessment and Plan Assess & Plan/Chief Complaint Pneumonia Continue Cefepime Colitis Surgery following Bowel regimen IV fluids Protonix TBI COPD CHF Obesity DVT prophylaxis: Lovenox Septic shock, resolved Lactic acidosis, resolved Obstipation, resolved Diagnosis/Problems Diagnosis/Problems (1) Septic shock Status: Resolved Resolution Date/Time: 03/06/21 @ 12:42 (2) Pneumonia Status: Acute (3) Lactic acidosis Status: Resolved Resolution Date/Time: 03/06/21 @ 12:42 (4) Stercoral colitis Status: Acute (5) Morbid obesity Status: Chronic (6) TBI (traumatic brain injury) Status: Chronic TERRI PURDY MD Mar 07, 2021 17:16
[2021-03-07 19:14] VITALS: BP 145/81
[2021-03-07] MEDS: DIVALPROEX EXT RELEASE 500 MG (DEPAKOTE ER) TAB PO SCH (19:59)
[2021-03-07] MEDS: PANTOPRAZOLE 40 MG (PROTONIX) TAB PO SCH (21:33)
[2021-03-08] MEDS: TAMSULOSIN 0.4 MG (FLOMAX) CAP PO SCH ×2 (00:06→12:24)
[2021-03-08] MEDS: CEFEPIME INJECTION 1,000 MG in NS (IVPB) 50 ML IV SCH ×3 (00:06→12:25)
[2021-03-08 00:37] VITALS: BP 148/92
[2021-03-08 04:15] VITALS: BP 146/74
[2021-03-08] MEDS: PANTOPRAZOLE 40 MG (PROTONIX) TAB PO SCH ×2 (06:33→17:28)
[2021-03-08] MEDS: BETHANECHOL 25 MG (URECHOLINE) TAB PO SCH ×3 (06:33→17:28)
[2021-03-08] MEDS: inSUlin ASPART (NovoLOG) 1 UNIT/0.01 ML (CHARGE PER UNIT) SC SCH ×4 (06:33→20:17)
[2021-03-08 06:37] LABS: POTASSIUM 3.4 MMOL/L (3.6-5.0)
[2021-03-08 06:38] LABS: CALCIUM 7.9 MG/DL (8.5-10.1)
[2021-03-08] MEDS: POTASSIUM CL 10MEQ/50ML IVPB 50 ML IV SCH ×3 (06:39→09:21)
[2021-03-08] MEDS: KCL 20 MEQ TAB (K-DUR) PO SCH (06:39)
[2021-03-08 06:43] LABS: CREATININE SERUM 0.59 MG/DL (0.60-1.30)
[2021-03-08 06:45] LABS: MAGNESIUM 1.5 MG/DL (1.6-2.4)
[2021-03-08] MEDS: MAGNESIUM 1 GM/100 ML IVPB 100 ML IV SCH ×3 (07:02→09:21)
[2021-03-08] MEDS: RT-ALBUTEROL HFA 8.5 GM INHALER IH SCH ×4 (07:17→19:12)
[2021-03-08 08:00] VITALS: BP 150/96
[2021-03-08] MEDS: ASPIRIN E.C. 81 MG (ECOTRIN) TAB PO SCH (09:39)
[2021-03-08] MEDS: polyethylene glycoL POWDER 17 GM (MIRALAX) PACK PO SCH ×2 (09:39→19:43)
[2021-03-08] MEDS: guaiFENesin (MUCINEX) 600 MG TAB PO SCH (09:39)
[2021-03-08] MEDS: LORATADINE (CLARITIN) 10 MG TAB PO SCH (09:39)
[2021-03-08] MEDS: VENlafaxine XR 75 MG (EFFEXOR XR) CAP PO SCH (09:39)
[2021-03-08] MEDS: DOCUSATE SODIUM 100 MG (COLACE) CAP PO SCH ×2 (09:39→19:43)
[2021-03-08] MEDS: GABAPENTIN 300 MG (NEURONTIN) CAP PO SCH ×3 (09:39→20:22)
[2021-03-08] MEDS: TIMOLOL MALEATE 0.5% 5 ML (TIMOPTIC) BTL OU SCH ×2 (09:40→20:23)
[2021-03-08 10:05] VITALS: BP 131/88
[2021-03-08 15:30] VITALS: BP 148/94
--- NOTE | 2021-03-08 17:51 | Progress Note - Hospitalist ---
Subjective HPI/CC On Admission Date Seen by Provider: Mar 08, 2021 Time Seen by Provider: 10:55 Jose Saini is a 70 year old male with PMH cognitive impairment due to history of TBI, CHF, COPD, KAYLEY on CPAP, obesity, who presented with shortness of breath. He is a poor historian due to his TBI. He is able to tell me that he is not in pain. He also denies shortness of breath. He does not voice any complaints. Upon examination in the ER, he was found to have pneumonia as well as coliitis with a large stool burden. Subjective/Events-last exam He is awake and alert. He has no complaints. He denies pain. Focused Exam Lactate Level 03/06/21 03:59: Lactic Acid Level 1.43 Objective Exam Vital Signs Vital Signs Date Time Temp Pulse Resp B/P (MAP) Pulse Ox O2 Delivery O2 Flow Rate FiO2 03/08/21 15:30 35.6 106 18 148/94 (112) 95 Nasal Cannula 3.00 03/05/21 18:29 28 Capillary Refill : Less Than 3 Seconds General Appearance: No Apparent Distress, Chronically ill, Obese Respiratory: Lungs Clear, No Respiratory Distress Cardiovascular: No Murmur, Tachycardia Gastrointestinal: Normal Bowel Sounds, Soft Extremity: Normal Inspection, Non Tender Neurologic/Psychiatric: Alert, Disoriented Skin: Normal Color, Warm/Dry Results/Procedures Lab Laboratory Tests 03/08/21 05:46 Patient resulted labs reviewed. Imaging: Reviewed Imaging Report Assessment/Plan Assessment and Plan Assess & Plan/Chief Complaint Pneumonia Continue Cefepime Stercoral colitis Improved Surgery following Bowel regimen Protonix TBI COPD CHF Obesity DVT prophylaxis: Lovenox Septic shock, resolved Lactic acidosis, resolved Obstipation, resolved Diagnosis/Problems Diagnosis/Problems (1) Septic shock Status: Resolved Resolution Date/Time: 03/06/21 @ 12:42 (2) Pneumonia Status: Acute (3) Lactic acidosis Status: Resolved Resolution Date/Time: 03/06/21 @ 12:42 (4) Stercoral colitis Status: Acute (5) Morbid obesity Status: Chronic (6) TBI (traumatic brain injury) Status: Chronic TERRI PURDY MD Mar 08, 2021 17:51
[2021-03-08 19:02] VITALS: BP 137/89
[2021-03-08] MEDS: SENNOSIDES 8.6 MG (SENOKOT) TAB PO SCH (19:43)
[2021-03-08] MEDS: DIVALPROEX EXT RELEASE 500 MG (DEPAKOTE ER) TAB PO SCH (20:23)
[2021-03-09 00:33] VITALS: BP 155/95
[2021-03-09] MEDS: TAMSULOSIN 0.4 MG (FLOMAX) CAP PO SCH ×2 (00:59→13:47)
[2021-03-09 04:09] VITALS: BP 145/85
[2021-03-09 05:22] LABS: POTASSIUM 3.7 MMOL/L (3.6-5.0)
[2021-03-09 05:24] LABS: CALCIUM 7.9 MG/DL (8.5-10.1)
[2021-03-09 05:28] LABS: CREATININE SERUM 0.65 MG/DL (0.60-1.30)
[2021-03-09] MEDS: POTASSIUM CL 10MEQ/50ML IVPB 50 ML IV SCH (05:37)
[2021-03-09] MEDS: KCL 20 MEQ TAB (K-DUR) PO SCH (05:37)
[2021-03-09] MEDS: PANTOPRAZOLE 40 MG (PROTONIX) TAB PO SCH (05:43)
[2021-03-09] MEDS: BETHANECHOL 25 MG (URECHOLINE) TAB PO SCH ×2 (05:43→13:46)
[2021-03-09] MEDS: inSUlin ASPART (NovoLOG) 1 UNIT/0.01 ML (CHARGE PER UNIT) SC SCH ×2 (05:43→12:33)
[2021-03-09 05:52] LABS: MAGNESIUM 1.8 MG/DL (1.6-2.4)
[2021-03-09] MEDS: MAGNESIUM 1 GM/100 ML IVPB 100 ML IV SCH (05:54)
[2021-03-09] MEDS: RT-ALBUTEROL HFA 8.5 GM INHALER IH SCH ×2 (07:00→10:54)
[2021-03-09 07:51] VITALS: BP 143/87
[2021-03-09] MEDS: ASPIRIN E.C. 81 MG (ECOTRIN) TAB PO SCH (09:31)
[2021-03-09] MEDS: VENlafaxine XR 75 MG (EFFEXOR XR) CAP PO SCH (09:31)
[2021-03-09] MEDS: LORATADINE (CLARITIN) 10 MG TAB PO SCH (09:31)
[2021-03-09] MEDS: GABAPENTIN 300 MG (NEURONTIN) CAP PO SCH ×2 (09:31→13:47)
[2021-03-09] MEDS: guaiFENesin (MUCINEX) 600 MG TAB PO SCH (09:31)
[2021-03-09] MEDS: TIMOLOL MALEATE 0.5% 5 ML (TIMOPTIC) BTL OU SCH (09:31)
[2021-03-09] MEDS: SENNOSIDES 8.6 MG (SENOKOT) TAB PO SCH (09:35)
[2021-03-09] MEDS: DOCUSATE SODIUM 100 MG (COLACE) CAP PO SCH (09:35)
[2021-03-09] MEDS: polyethylene glycoL POWDER 17 GM (MIRALAX) PACK PO SCH (09:35)
[2021-03-09] MEDS ORDERED: PANT40TA52 PO (11:04)
--- NOTE | 2021-03-09 11:05 | Discharge Inst-Skilled Nursing ---
Discharge Inst-Skilled NF Reconcile Patient Problems Problems Reviewed?: Yes Chief Complaint Jose Saini is a 70 year old male with PMH cognitive impairment due to history of TBI, CHF, COPD, KAYLEY on CPAP, obesity, who presented with shortness of breath. He is a poor historian due to his TBI. He is able to tell me that he is not in pain. He also denies shortness of breath. He does not voice any complaints. Upon examination in the ER, he was found to have pneumonia as well as coliitis with a large stool burden. Patient Instructions Patient Problems: Debility PNA Goal: [place] Consult/Follow Up/Orders Follow Up Appt.: PCP 1 week Skilled NF Admit to: [facility] ([facility]) I certify that SNF services are required to be given on an inpatient basis because of the above named patient's need for [facility] care on a continuing basis for the conditions(s) for which he/she was receiving inpatient hospital services prior to his/her transfer to the SNF. [facility] Facility Order: Nursing Services, Drill Press Operator Helper-Evaluate & Treat, Physical Therapy-Evaluate & Treat, Speech Language-Evaluate & Treat Oxygen Delivery Method: Nasal Cannula Discharge Diet: ADA Diet Resuscitation Status: Do Not Resuscitate New & Resume Previous Orders New Medications: Pantoprazole Sodium (Pantoprazole Sodium) 40 Mg Tablet. 40 MG PO BIDAC, #60 TAB Continued Medications: Acetaminophen (Tylenol) 325 Mg Tablet 650 MG PO Q6H PRN for PAIN-MILD, TAB Aspirin (Aspirin EC) 81 Mg Tablet. 81 MG PO DAILY, TAB Atorvastatin Calcium (Atorvastatin Calcium) 40 Mg Tablet 40 MG PO HS, TAB Bethanechol Chloride (Bethanechol Chloride) 25 Mg Tablet 25 MG PO TIDAC, TAB Cetirizine HCl (Zyrtec) 10 Mg Tablet 10 MG PO DAILY, TAB Desvenlafaxine (Desvenlafaxine ER) 50 Mg Tab.er.24h 50 MG PO DAILY, TAB Divalproex Sodium (Depakote ER) 500 Mg Tab.er.24h 1500 MG PO HS, TAB TAKES 3 (500MG) TABLETS Gabapentin (Neurontin) 300 Mg Capsule 300 MG PO TID, CAP Guaifenesin (Mucinex) 600 Mg Tab.er.12h 600 MG PO DAILY, TAB Mag Hydrox/Al Hydrox/Simeth (Emeli-Lanta Liquid) 355 Ml Oral.susp 30 ML PO Q4H PRN for HEARTBURN/INDIGESTION, ML Magnesium Hydroxide (Milk of Magnesia) 400 Mg/5 Ml Oral.susp 30 ML PO DAILY PRN for CONSTIPATION-7TH LINE, ML Multivit-Min/FA/Lycopene/Lut (Centrum Silver Tablet) 1 Each Tablet 1 TAB PO DAILY, TAB Semaglutide (Ozempic) 1 Mg/0.75 Ml Pen.injctr 1 MG SQ THUR, EA Tamsulosin HCl (Flomax) 0.4 Mg Cap 0.4 MG PO Q12H, CAP Timolol Maleate (Timolol Maleate 0.5%) 5 Ml Drops 1 DROP OU BID, EA Discontinued Medications: Lisinopril/Hydrochlorothiazide (Lisinopril-Hctz 20-12.5 mg Tab) 1 Each Tablet 1 TAB PO DAILY, TAB Metformin HCl (Metformin HCl ER) 500 Mg Tab.er.24 500 MG PO BID, TAB Beth Gabriel Mar 09, 2021 11:04 BETH GABRIEL DO Mar 09, 2021 11:05
--- NOTE | 2021-03-09 11:05 | Progress Note - Hospitalist ---
Subjective HPI/CC On Admission Date Seen by Provider: Mar 09, 2021 Time Seen by Provider: 10:00 Jose Saini is a 70 year old male with PMH cognitive impairment due to history of TBI, CHF, COPD, KAYLEY on CPAP, obesity, who presented with shortness of breath. He is a poor historian due to his TBI. He is able to tell me that he is not in pain. He also denies shortness of breath. He does not voice any complaints. Upon examination in the ER, he was found to have pneumonia as well as coliitis with a large stool burden. Subjective/Events-last exam DC is planned Objective Exam Vital Signs Vital Signs Date Time Temp Pulse Resp B/P (MAP) Pulse Ox O2 Delivery O2 Flow Rate FiO2 03/09/21 13:48 37.0 100 20 134/87 93 Nasal Cannula 3.00 03/05/21 18:29 28 Capillary Refill : Less Than 3 Seconds General Appearance: No Apparent Distress, Chronically ill, Obese Results/Procedures Lab Patient resulted labs reviewed. Imaging: Reviewed Imaging Report Assessment/Plan Assessment and Plan Assess & Plan/Chief Complaint DC to KIMBERLY RUSSO DO Mar 09, 2021 11:05
--- NOTE | 2021-03-09 11:06 | Discharge Summary ---
Discharge Summary Hospital Course Was the Problem List Reviewed?: Yes Problems/Dx: (1) Septic shock Status: Resolved (2) Pneumonia Status: Acute (3) Lactic acidosis Status: Resolved (4) Stercoral colitis Status: Acute (5) Morbid obesity Status: Chronic (6) TBI (traumatic brain injury) Status: Chronic Hospital Course Date of Admission: Mar 03, 2021 at 15:31 Admission Diagnosis : Family Physician/Provider: Teresa Houston MD Date of Discharge: 03/09/21 Discharge Diagnosis: s/p septic shock, TBI. KAYLEY Hospital Course: Pt had a lengthy hospital course for 7 days when he came in with severe sepsis for pneumonia. He came from [facility]. He has a history of a traumatic brain injury, so no details are obtained from the pt. He ultimately completed IV antibiotics. Severe sepsis resolved. Labs returned back to normal and he will be discharged today. Labs and Pending Lab Test: Laboratory Tests 03/08/21 11:22: Glucometer 150H 03/08/21 15:50: Glucometer 162H 03/08/21 20:05: Glucometer 146H 03/09/21 04:36: Sodium Level 140, Potassium Level 3.7, Chloride Level 106, Carbon Dioxide Level 26, Anion Gap 8, Blood Urea Nitrogen 17, Creatinine 0.65, Estimat Glomerular Filtration Rate 122, BUN/Creatinine Ratio 26, Glucose Level 162H, Calcium Level 7.9L, Magnesium Level 1.8 Microbiology 03/03/21 Blood Culture - Preliminary, Resulted No growth 03/03/21 MRSA Screen - Final, Complete MRSA not isolated 03/03/21 Urine Culture - Final, Complete YEAST Home Meds Active Pantoprazole Sodium 40 Mg Tablet.dr 40 Mg PO BIDAC Reported Metformin HCl ER (Metformin HCl) 500 Mg Tab.er.24 500 Mg PO BID Neurontin (Gabapentin) 300 Mg Capsule 300 Mg PO TID Atorvastatin Calcium 40 Mg Tablet 40 Mg PO HS Flomax (Tamsulosin HCl) 0.4 Mg Cap 0.4 Mg PO Q12H Bethanechol Chloride 25 Mg Tablet 25 Mg PO TIDAC Emeli-Lanta Liquid (Mag Hydrox/Al Hydrox/Simeth) 355 Ml Oral.susp 30 Ml PO Q4H PRN Desvenlafaxine ER (Desvenlafaxine) 50 Mg Tab.er.24h 50 Mg PO DAILY Mucinex (Guaifenesin) 600 Mg Tab.er.12h 600 Mg PO DAILY Ozempic (Semaglutide) 1 Mg/0.75 Ml Pen.injctr 1 Mg SQ THUR Tylenol (Acetaminophen) 325 Mg Tablet 650 Mg PO Q6H PRN Aspirin EC (Aspirin) 81 Mg Tablet.dr 81 Mg PO DAILY Milk of Magnesia (Magnesium Hydroxide) 400 Mg/5 Ml Oral.susp 30 Ml PO DAILY PRN Centrum Silver Tablet (Multivit-Min/FA/Lycopene/Lut) 1 Each Tablet 1 Tab PO DAILY Zyrtec (Cetirizine HCl) 10 Mg Tablet 10 Mg PO DAILY Depakote ER (Divalproex Sodium) 500 Mg Tab.er.24h 1,500 Mg PO HS TAKES 3 (500MG) TABLETS Lisinopril-Hctz 20-12.5 mg Tab (Lisinopril/Hydrochlorothiazide) 1 Each Tablet 1 Tab PO DAILY Timolol Maleate 0.5% (Timolol Maleate) 5 Ml Drops 1 Drop OU BID Assessment/Pt Instructions NH PCP Discharge Planning: <30 minutes discharge planning Discharge Instructions Discharge Diet: ADA Diet Discharge Physical Examination Vital Signs Vital Signs Date Time Temp Pulse Resp B/P (MAP) Pulse Ox O2 Delivery O2 Flow Rate FiO2 03/09/21 10:54 95 Nasal Cannula 3.00 03/09/21 07:51 36.9 101 22 143/87 (105) 03/05/21 18:29 28 General Appearance: No Apparent Distress, WD/WN, Chronically ill, Obese Allergies: Coded Allergies: No Known Drug Allergies (Unverified , 06/14/18) Discharge Summary Date of Admission Mar 03, 2021 at 15:31 Date of Discharge Discharge Date: Mar 09, 2021 Admission Diagnosis Septic shock Discharge Diagnosis (1) Septic shock Status: Resolved (2) Pneumonia Status: Acute (3) Lactic acidosis Status: Resolved (4) Stercoral colitis Status: Acute (5) Morbid obesity Status: Chronic (6) TBI (traumatic brain injury) Status: Chronic KIMBERLY PEREZ DO Mar 09, 2021 11:06
[2021-03-09 12:00] VITALS: BP 134/87
--- NOTE | 2021-03-09 12:56 | Progress Note - Hospitalist ---
OJSE GARCÍA 03/09/21 1256: Subjective HPI/CC On Admission Date Seen by Provider: Mar 09, 2021 Time Seen by Provider: 08:30 Jose Saini is a 70 year old male with PMH cognitive impairment due to history of TBI, CHF, COPD, KAYLEY on CPAP, obesity, who presented with shortness of breath. He is a poor historian due to his TBI. He is able to tell me that he is not in pain. He also denies shortness of breath. He does not voice any complaints. Upon examination in the ER, he was found to have pneumonia as well as coliitis with a large stool burden. Subjective/Events-last exam Mr. Saini is seen sitting up in bed this morning. NAEON. He states that he feels "fair" today. He reports a good appetite, good sleep, appropriate bowel and bladder function, and no pain or difficulty breathing. He currently has no complaints Brief Hospital Course Jose Saini, a 70 year male patient with a DNR presented to the [facility] ED via EMS from [facility] for reports of respiratory distress. Notable findings in the ED included an O2 saturation of 82% on 10L non rebr eather mask, a blood pressure of 79/50, a lactic acid of 5.31, a WBC count of 19.5, and a chest CT suggestive of left lower lobe pneumonia and stercocolitis. Ultimately, he was admitted to ICU for septic shock secondary to pneumonia. Consulted surgery for evaluation of the patients stercocolitis and a possible GI bleed after one instance of hematemesis was observed. Continued appropriate evaluation and management on the ICU service and they progressed well there until transfer to 4th floor med/surg. He was monitored and treated according to consulting specialists recommendations and the standard of care. Symptoms were managed well with IV fluids, IV cefepime. No evidence of AMS was noted, but the patient is only oriented to self at baseline. No evidence of end organ dysfunction was noted during this admission. Patient did require BiPAP at 16/8 40% FiO2 with oxygen saturation 91% during a portion of this admission. Patient experienced one instance of coffee ground emesis concerning for GI bleed, but this resolved. He was evaluated for their problems and deemed appropriate for outpatient follow-up and dismissal to [facility]. Upon the day of dismissal the patient was in agreement with the plan. The patient was noted by providers, nursing, and/or ancillary staff members to be tolerating the appropriate diet, having bowel movement(s), ambulating, oxygenating, and communicating at their prior baseline prior to dismissal. All questions were answered and the appropriate follow-up was made prior to the patient's dismissal. They will need to follow up with their PCP for post-hospitalization evaluation. On dismissal the patient was encouraged to return to an emergency department if their symptoms/problems persist and/or worsen. Review of Systems General: No Chills, No Fatigue; Appetite HEENT: No Head Aches, No Visual Changes, No Sore Throat Pulmonary: No Dyspnea, No Cough Cardiovascular: No: Chest Pain, Palpitations Gastrointestinal: No: Nausea, Vomiting, Abdominal Pain, Diarrhea, Constipation Genitourinary: No Dysuria, No Frequency Objective Exam Vital Signs Vital Signs Date Time Temp Pulse Resp B/P (MAP) Pulse Ox O2 Delivery O2 Flow Rate FiO2 03/09/21 10:54 95 Nasal Cannula 3.00 03/09/21 07:51 36.9 101 22 143/87 (105) 03/05/21 18:29 28 Capillary Refill : Less Than 3 Seconds General Appearance: No Apparent Distress, WD/WN HEENT: PERRL/EOMI Neck: Non Tender, Supple Respiratory: Chest Non Tender, Lungs Clear, Normal Breath Sounds, No Resp iratory Distress Cardiovascular: Regular Rate, Rhythm, No Edema, No Gallop, No Murmur Gastrointestinal: Non Tender, Soft Rectal: Deferred Extremity: Normal Inspection, Non Tender Neurologic/Psychiatric: Alert; No Oriented x3 (oriented to self only) Skin: Normal Color, Warm/Dry Lymphatic: No Adenopathy Results/Procedures Lab Laboratory Tests 03/09/21 04:36 Patient resulted labs reviewed. Imaging: Reviewed Imaging Report Assessment/Plan Assessment and Plan Assess & Plan/Chief Complaint This is a 70 year old male with PMH cognitive impairment due to history of TBI, CHF, COPD, KAYLEY on CPAP, obesity, who presented with hypoxia, hypotension, SOB, and cough due to septic shock 2/2 pneumonia. Diagnosis/Problems Diagnosis/Problems (1) Septic shock Status: Resolved Assessment & Plan: -CT-Chest with LLL consolidation on admission; repeat CXR shows improving consolidation -Urine cx showing yeast -Blood cx showing coag neg staph; thought to be contaminate -IV cefepime d/c on 03/08/21; 5 days of therapy Resolution Date/Time: 03/06/21 @ 12:42 (2) LLL pneumonia Status: Acute Assessment & Plan: - CT chest suggested left lower lobe - Pt oxygenating well; 95% on 3L NC - IV cefepime - d/c abx through 03/08/21 to complete 5-day course Qualifiers: Qualified Codes: J18.9 - Pneumonia, unspecified organism (3) Colitis Status: Acute Assessment & Plan: -Pt now having multiple liquid stools -Benign abdominal exam today -Consider repeat abdominal series for evaluation (4) Hematemesis of unknown cause Status: Resolved Assessment & Plan: -One instance of hematemesis reported on HD #1; no further reports -Hgb 12.7 today, trending downward -Surgery consulted; appreciate recs -Consider OP evaluation with EGD/colonoscopy BETH GABRIEL DO 03/10/21 0525: Supervisory-Addendum Brief Verification & Attestation Participated in pt care: history, MDM, physical Personally performed: exam, history, MDM, supervision of care Care discussed with: Medical Student Procedures: n/a Results interpretation: Verified all documentation Verification and Attestation of Medical Student E/M Service A medical student performed and documented this service in my presence. I reviewed and verified all information documented by the medical student and made modifications to such information, when appropriate. I personally performed the physical exam and medical decision making. Beth Gabriel Mar 10, 2021,05:25 JOSE GARCÍA Mar 09, 2021 12:56 BETH GABRIEL DO Mar 10, 2021 05:25
[2021-03-09 13:48] VITALS: BP 134/87
== END 2021-03-09 14:15 | DRG 871 ==
LOC: EDUNIT# 12:21 → ER 12:23 → ICU 15:31 → 4TH 03-06 14:24
PROVIDERS: ADMIT Internal Medicine; ATTEND Internal Medicine
PROC: 5A0945A Assistance with Respiratory Ventilation, 24-96 Consecutive Hours, High Flow/Velocity Cannula (ICD-10-PCS; principal; 2021-03-03)
DX: A41.9 Sepsis, unspecified organism (principal); R65.21 Severe sepsis with septic shock; J18.9 Pneumonia, unspecified organism; R57.1 Hypovolemic shock; R57.8 Other shock; E87.2 Acidosis; K92.0 Hematemesis; Z68.41 Body mass index [BMI] 40.0-44.9, adult; Z66 Do not resuscitate; K52.89 Other specified noninfective gastroenteritis and colitis; E66.01 Morbid (severe) obesity due to excess calories; I11.0 Hypertensive heart disease with heart failure; I50.9 Heart failure, unspecified; J44.9 Chronic obstructive pulmonary disease, unspecified; G47.33 Obstructive sleep apnea (adult) (pediatric); R09.02 Hypoxemia; K56.41 Fecal impaction; E11.9 Type 2 diabetes mellitus without complications; H54.7 Unspecified visual loss; F32.A Depression, unspecified; N40.3 Nodular prostate with lower urinary tract symptoms; R33.8 Other retention of urine; K21.9 Gastro-esophageal reflux disease without esophagitis; Z20.822 Contact with and (suspected) exposure to COVID-19; Z87.820 Personal history of traumatic brain injury; Z99.89 Dependence on other enabling machines and devices; Z79.84 Long term (current) use of oral hypoglycemic drugs
CPT/HCPCS: 36415; 51702; 70450; 71045; 71275; 74176; 74177; 80048; 80053; 80061; 81000; 82805; 82947; 83605; 83735; 83874; 83880; 84100; 84145; 84484; 85007; 85025; 85027; 85610; 85730; 87040; 87081; 87088; 87635; 87636; 87804; 93005; 93041; 94640; 94660; 94760; 96361; 96365; 96375; 99291

== ENCOUNTER → 2021-12-18 | Outpatient (CLI) | payer MEDICARE, MEDICAID ==
[~2021-12-18] MED LIST changes: +ATOR40TA70 PO; +BETH25TA2 PO; +DESV50TA8 PO; +GABA300C PO; +GUAI600T43 PO; +METF-478 PO; +PANT40TA52 PO; +SEMA1PEN3 SQ
--- NOTE | 2021-12-18 14:20 | Diagnostic Imaging Report ---
Indication: Dysphasia. Procedure was performed in conjunction with speech pathology. Video fluoroscopy was performed during swallowing of barium at multiple consistencies. A total of 112 seconds of fluoroscopic time was utilized. Patient ingested thin liquid as well as applesauce, nectar, banana and cracker consistency. There was deep laryngeal penetration during swallowing of thin liquid on multiple occasions. There is some shallow penetration during the swallowing of nectar consistency. No aspiration was observed. There is moderate amount of vallecular residue with multiple consistencies. IMPRESSION: Abnormal video swallow demonstrating moderate vallecular residue. There is also laryngeal penetration during swallowing of thin and nectar consistency. No aspiration was observed. Dictated by: Dictated on workstation # [id number]
== END ==
LOC: RAD 10:34
PROVIDERS: ATTEND Nurse Practitioner Community Health
DX: R13.12 Dysphagia, oropharyngeal phase (principal)
CPT/HCPCS: 74230